=== PATIENT | male | born 1940 | race Hispanic/Latino ===

== ENCOUNTER 2017-12-12 18:12 | Inpatient (IN) | payer OTHER ==
[2017-12-12 19:04] LABS: Basophils % (Auto) 0.3 % (0.0-1.8); Hematocrit 44.4 % (35.5-45.6); Hemoglobin 15.1 gm/dl (11.8-15.2); Lymphocytes # (Auto) 0.5 K/mm3 (1.2-5.4); Lymphocytes % (Auto) 5.4 % (13.4-35.0); Mean Corpuscular HGB Conc 34 % (32-34); Mean Corpuscular Hemoglobin 31 pg (28-32); Mean Corpuscular Volume 92 fl (84-94); Monocytes % (Auto) 11.4 % (0.0-7.3); Platelet Count 182 K/mm3 (140-440); Red Blood Count 4.85 M/mm3 (3.65-5.03); Red Cell Distribution Width 15.2 % (13.2-15.2)
[2017-12-12 19:22] LABS: Alanine Aminotransferase 16 units/L (7-56); Albumin 3.8 g/dL (3.9-5); BUN/Creatinine Ratio 21; Blood Urea Nitrogen 17 mg/dL (9-20); Calcium 8.3 mg/dL (8.4-10.2); Hemolysis Index 33
[2017-12-12] MEDS ORDERED: ZOFRAN IV PRN ×2 (19:34→22:29)
[2017-12-12] MEDS ORDERED: SUBLIMAZE IV PRN (19:34)
--- NOTE | 2017-12-12 19:49 | Emergency Department Report ---
HPI - General Chief Complaint: Fall Time Seen by Provider: 12/12/17 19:21 - HPI HPI: Room 23 The patient is a 77-year-old male presenting with chief complaint of right lower extremity pain. The patient states she flew in from the [place] last night (10 hour flight). The patient states he went to his hotel while walking to the bathroom he believes his right lower extremity gave out and he fell to the ground. Patient denies ever losing consciousness. Patient denies ever having chest pain, shortness of breath or dizziness. The patient states she had people help him UP. However today when he realized he could not get up on its own came to the emergency department. The patient currently gives his pain a score of 2/10 while he is lying still Location: Right lower extremity Duration: [See above] Quality: Pain Severity:2/10 Modifying factors: [see above] Context: [see above] Mode of transportation: [not driving] ED Past Medical Hx - Past Medical History Additional medical history: hx of meneire disease , deaf right ear - Surgical History Past Surgical History?: No Additional Surgical History: Right hip replacement, right knee surgery - Family History Family history: no significant - Social History Smoking Status: Never Smoker Substance Use Type: Alcohol (occasional) ED Review of Systems ROS: Stated complaint: FEMUR FRACTURE Other details as noted in HPI Respiratory: denies: shortness of breath Cardiovascular: denies: chest pain Musculoskeletal: arthralgia, myalgia Neurological: denies: other (denies dizziness) Physical Exam - Physical Exam Vital Signs: Vital Signs 12/12/17 18:38 Temperature 98.7 F Pulse Rate 106 H Respiratory 16 Rate Blood Pressure 143/83 Blood Pressure 143/83 [Right] O2 Sat by Pulse 96 Oximetry Physical Exam: GENERAL: The patient is well-developed well-nourished male lying on stretcher not appearing to be in acute distress. [] HEENT: Normocephalic. Atraumatic. Extraocular motions are intact. Patient has moist mucous membranes. NECK: Supple. Trachea midline CHEST/LUNGS: Clear to auscultation. There is no respiratory distress noted. HEART/CARDIOVASCULAR: Regular. There is no tachycardia. There is no gallop rub or murmur. 2+ right DP ABDOMEN: Abdomen is soft, nontender. Patient has normal bowel sounds. There is no abdominal distention. SKIN: There is no rash. There is slight fullness of the right thigh but it is not taut. There is no diaphoresis. NEURO: The patient is awake, alert, and oriented. The patient is cooperative. The patient has no focal neurologic deficits. The patient has normal speech MUSCULOSKELETAL: There is fullness and tenderness of the right thigh. There is limited range of motion of the right leg secondary to pain ED Course Vital Signs 12/12/17 18:38 Temperature 98.7 F Pulse Rate 106 H Respiratory 16 Rate Blood Pressure 143/83 Blood Pressure 143/83 [Right] O2 Sat by Pulse 96 Oximetry - Consultations Consultation #1: 19:[address] Box 12/12/17 21:40 Orthopedic surgery paged for update 12/12/17 21:43 CT chest findings discussed with Dr. Box. States it is okay to initiate heparin therapy ED Medical Decision Making - Lab Data Result diagrams: 12/12/17 18:50 12/12/17 18:50 Laboratory Tests 12/12/17 12/12/17 12/12/17 18:50 18:50 19:54 WBC 8.5 RBC 4.85 Hgb 15.1 Hct 44.4 MCV 92 MCH 31 MCHC 34 RDW 15.2 Plt Count 182 Lymph % (Auto) 5.4 L [place] % (Auto) 11.4 H Eos % (Auto) 0.0 Baso % (Auto) 0.3 Lymph # 0.5 L [place] # 1.0 H Eos # 0.0 Baso # 0.0 Seg Neutrophils % 82.9 H Seg Neutrophils # 7.0 PT 13.3 INR 0.96 APTT 35.5 Sodium 136 L Potassium 3.7 Chloride 96.3 L Carbon Dioxide 23 Anion Gap 20 BUN 17 Creatinine 0.8 Estimated GFR > 60 BUN/Creatinine Ratio 21 Glucose 131 H Calcium 8.3 L Total Bilirubin 1.10 AST 29 ALT 16 Alkaline Phosphatase 68 Total Creatine Kinase CK-MB (CK-2) CK-MB (CK-2) Rel Index Troponin T Total Protein 6.6 Albumin 3.8 L Albumin/Globulin Ratio 1.4 Blood Type Antibody Screen 12/12/17 12/12/17 19:54 19:54 WBC RBC Hgb Hct MCV MCH MCHC RDW Plt Count Lymph % (Auto) [place] % (Auto) Eos % (Auto) Baso % (Auto) Lymph # [place] # Eos # Baso # Seg Neutrophils % Seg Neutrophils # PT INR APTT Sodium Potassium Chloride Carbon Dioxide Anion Gap BUN Creatinine Estimated GFR BUN/Creatinine Ratio Glucose Calcium Total Bilirubin AST ALT Alkaline Phosphatase Total Creatine Kinase 1011 H CK-MB (CK-2) 5.0 H CK-MB (CK-2) Rel Index 0.4 Troponin T < 0.010 Total Protein Albumin Albumin/Globulin Ratio Blood Type O NEGATIVE Antibody Screen Negative - EKG Data -: EKG Interpreted by Me EKG shows normal: sinus rhythm Rate: normal - EKG Data When compared to previous EKG there are: previous EKG unavailable Interpretation: other (no ischemic changes seen) - Radiology Data Radiology results: report reviewed (CT chest), image reviewed (pelvis x-ray, right femur x-ray, CT chest) interpreted by me: Pelvis x-ray-no acute fracture. Right hip hardware in place Right femur [id number] mid to distal femoral shaft fracture FINAL REPORT PROCEDURE: CT ANGIO CHEST TECHNIQUE: Computerized tomographic angiography of the chest was performed after the IV injection of iodinated nonionic contrast including image processing. The image data was postprocessed using 2-dimensional multiplanar reformatted (MPR) and 3-dimensional (MIP and/or volume rendered) techniques. HISTORY: fall after 10 hour flight COMPARISON: No prior studies are available for comparison. FINDINGS: Heart and pericardium: Normal. Thoracic aorta: There is no thoracic aortic aneurysm or dissection.. Pulmonary vasculature: There are emboli in the distal basilar branches on the right. There is no saddle embolus.. Lymph nodes: No enlarged thoracic lymph nodes. Lungs: Lungs are expanded. There are fibrotic changes at the lung bases. There are no acute infiltrates.. Pleural space: No effusion, thickening, or pneumothorax. Musculoskeletal structures: No significant abnormality. Upper abdominal structures: No significant abnormality. IMPRESSION: Right basilar pulmonary emboli. Dr. Gutierrez was notified by telephone at 8:30 p.m. central time. Transcribed By: CO Dictated By: GALLO GOULD MD Electronically Authenticated By: GALLO GOULD MD Signed Date/Time: 12/12/171736 DD/ 36 TD/TT: 12/12/171736 - Differential Diagnosis femur fracture, PE Critical care attestation.: If time is entered above; I have spent that time in minutes in the direct care of this critically ill patient, excluding procedure time. ED Disposition Clinical Impression: Right femoral shaft fracture, Pulmonary embolus Disposition: 09 OP ADMIT IP TO THIS HOSP Is pt being admited?: Yes Does the pt Need Aspirin: No Condition: Fair Referrals: PRIMARY CARE,MD [Primary Care Provider] - 3-5 Days Time of Disposition: 21:44 (hospitalist paged (Dr. July Poon))
--- NOTE | 2017-12-12 19:53 | XRay Report ---
FINAL REPORT PROCEDURE: Right femur. TECHNIQUE: AP and lateral views. HISTORY: Patient fell, leg pain. COMPARISON: No prior studies are available for comparison. FINDINGS: There is a right hip prosthesis in satisfactory position. There is a comminuted fracture involving the distal diaphysis of the femur. There is lateral displacement of the main distal fragment of approximately 10 millimeters. There is medial displacement of a 2nd fragment of approximately 16 millimeters. There is anterior angulation of the main distal fragment of approximately 20 degrees. There is a medial hemiarthroplasty present in the knee joint. The soft tissues are unremarkable. IMPRESSION: Comminuted fracture of the distal femur as described.
--- NOTE | 2017-12-12 19:55 | XRay Report ---
FINAL REPORT PROCEDURE: Pelvis. TECHNIQUE: AP pelvis, cross-table lateral proximal right femur. HISTORY: Patient fell, hip pain. COMPARISON: No prior studies are available for comparison. FINDINGS: The pelvis appears intact without fracture as far as visualized. There is a right hip prosthesis. There is a partially imaged comminuted fracture of the distal femur. IMPRESSION: No evidence of a pelvic fracture. Comminuted fracture of the right femur.
[2017-12-12 20:46] LABS: INR 0.96 (0.87-1.13)
[2017-12-12 20:47] LABS: Partial Thromboplastin Time 35.5 Sec. (24.2-36.6)
[2017-12-12] MEDS ORDERED: NACL 0.9% 1000 ML 1,000 ML IV ONE (21:24)
--- NOTE | 2017-12-12 21:41 | Cat Scan Report ---
FINAL REPORT PROCEDURE: CT ANGIO CHEST TECHNIQUE: Computerized tomographic angiography of the chest was performed after the IV injection of iodinated nonionic contrast including image processing. The image data was postprocessed using 2-dimensional multiplanar reformatted (MPR) and 3-dimensional (MIP and/or volume rendered) techniques. HISTORY: fall after 10 hour flight COMPARISON: No prior studies are available for comparison. FINDINGS: Heart and pericardium: Normal. Thoracic aorta: There is no thoracic aortic aneurysm or dissection.. Pulmonary vasculature: There are emboli in the distal basilar branches on the right. There is no saddle embolus.. Lymph nodes: No enlarged thoracic lymph nodes. Lungs: Lungs are expanded. There are fibrotic changes at the lung bases. There are no acute infiltrates.. Pleural space: No effusion, thickening, or pneumothorax. Musculoskeletal structures: No significant abnormality. Upper abdominal structures: No significant abnormality. IMPRESSION: Right basilar pulmonary emboli. Dr. Gutierrez was notified by telephone at 8:30 p.m. central time.
[2017-12-12] MEDS ORDERED: HEPARIN 10,000 UNITS/10 ML IV ONE (21:45)
[2017-12-12 22:23] LABS: INR 0.97 (0.87-1.13)
[2017-12-12 22:24] LABS: Partial Thromboplastin Time 35.1 Sec. (24.2-36.6)
[2017-12-12] MEDS ORDERED: DULCOLAX PR PRN (22:29)
[2017-12-12] MEDS ORDERED: MORPHINE IV PRN (22:29)
[2017-12-12] MEDS ORDERED: MILK OF MAGNESIA PO PRN (22:29)
[2017-12-12] MEDS ORDERED: TYLENOL PO PRN (22:29)
--- NOTE | 2017-12-12 22:31 | History and Physical Report ---
History of Present Illness Date of examination: 12/12/17 History of present illness: 77-year-old man with no medical problem, visiting from the [place], the hospital as well as he was at the hotel, he sustained a fall, there was no loss of consciousness, he stated he did not trip on anything or lost his balance. Patient had difficulty getting up Review Of Systems: Constitutional: no weight loss Ears, eyes, nose, mouth and throat: no nasal congestion, no nasal discharge, no sinus pressure, blurry vision, diplopia Neck: No neck pain or rigidity. Cardiovascular: No chest pain, palpitations Respiratory: No shortness of breath, cough Gastrointestinal: No abdominal pain, hematochezia Genitourinary : no dysuria, frequency , hematuria Musculoskeletal: no muscle ache Integumentary: no rash, no pruritis Neurological: no parathesias, focal weakness Endocrine: no cold or heat intolerance, no polyuria or polydipsia Hematologic/Lymphatic: no easy bruising, no easy bleeding, no gland swelling Allergic/Immunologic: no urticaria, no angioedema. PAST MEDICAL HISTORY:none PAST SURGICAL HISTORY: Hip, knee, hernia repair FAMILY HISTORY: Hypertension SOCIAL HISTORY: Denies alcohol, tobacco, drugs . Medications and Allergies Allergies Allergy/AdvReac Type Severity Reaction Status Date / Time No Known Allergies Allergy Unverified 12/12/17 18:44 Active Meds: Active Medications Fentanyl (Sublimaze) 100 mcg IV ONCE PRN PRN Reason: Pain Last Admin: 12/12/17 21:01 Dose: 100 mcg Sodium Chloride (Nacl 0.9% 1000 Ml) 1,000 mls @ 125 mls/hr IV ONCE ONE Stop: 12/13/17 05:23 Heparin Sodium/Sodium Chloride (Heparin/ 0.45% Nacl-25,000 Unit/500 Ml) 25,000 unit in 500 mls @ 24 mls/hr IV TITR SHIRA; 1,200 UNITS/HR PRN Reason: Protocol Ondansetron HCl (Zofran) 8 mg IV ONCE PRN PRN Reason: Nausea Last Admin: 12/12/17 21:01 Dose: 8 mg Exam - Physical Exam Narrative exam: Gen. appearance: Patient lying in bed in no acute distress HEENT: Normocephalic/atraumatic, pupils equal round reactive to light, extra occular movement intact, no scleral icterus, no JVD or thyromegaly or nodule, neck is supple, mucous membrane moist, no erythema or exudate Heart: S1-S2, regular rate and rhythm Lungs: Clear to auscultation bilateral breathing comfortable Abdomen: Positive bowel sounds, nontender, nondistended, no organomegaly Extremities: No edema, cyanosis, clubbing Neuro:: Oriented 3 , cranial nerves II-12 intact, speech, motor intact Skin: No rash, nodules, warm dry - Constitutional Vitals: Temp Pulse Resp BP Pulse Ox 98.7 F 106 H 16 143/83 98 12/12/17 18:38 12/12/17 18:38 12/12/17 18:38 12/12/17 18:38 12/12/17 18:38 Results - Labs CBC & Chem 7: 12/12/17 18:50 12/12/17 18:50 Labs: Abnormal lab results 12/12/17 12/12/17 12/12/17 Range/Units 18:50 18:50 19:54 Lymph % (Auto) 5.4 L (13.4-35.0) % [place] % (Auto) 11.4 H (0.0-7.3) % Lymph # 0.5 L (1.2-5.4) K/mm3 [place] # 1.0 H (0.0-0.8) K/mm3 Seg Neutrophils % 82.9 H (40.0-70.0) % Sodium 136 L (137-145) mmol/L Chloride 96.3 L (98-107) mmol/L Glucose 131 H (75-100) mg/dL Calcium 8.3 L (8.4-10.2) mg/dL Total Creatine Kinase 1011 H (55-170) units/L CK-MB (CK-2) 5.0 H (0.0-4.0) ng/mL Albumin 3.8 L (3.9-5) g/dL - Imaging and Cardiology EKG: image reviewed CT scan - chest: report reviewed Assessment and Plan X-ray of the hip, pelvis, femur reviewed Assessment Acute right-sided pulmonary emboli Right femur fracture Rhabdomyolysis Plan Admit to medicine Continue heparin drip, consult orthopedic Start IV fluids, monitor CK levels IV morphine, DVT prophylaxis
[2017-12-12] MEDS ORDERED: HEPARIN/ 0.45% NACL-25,000 UNIT/500 ML 25,000 UNIT/500 ML BAG ONE (23:15)
[2017-12-12] MEDS ORDERED: HEPARIN ONE (23:15)
[2017-12-12] MEDS: HEPARIN/ 0.45% NACL-25,000 UNIT/500 ML 25,000 UNIT/500 ML BAG IV SCH (23:15)
[2017-12-13] MEDS: NACL 0.45% 1000 ML 1,000 ML IV SCH ×2 (00:19→11:39)
[2017-12-13 07:39] LABS: Basophils % (Auto) 0.2 % (0.0-1.8); Hematocrit 40.8 % (35.5-45.6); Hemoglobin 14.1 gm/dl (11.8-15.2); Lymphocytes # (Auto) 0.8 K/mm3 (1.2-5.4); Lymphocytes % (Auto) 11.6 % (13.4-35.0); Mean Corpuscular HGB Conc 35 % (32-34); Mean Corpuscular Hemoglobin 31 pg (28-32); Mean Corpuscular Volume 90 fl (84-94); Monocytes # (Auto) 0.9 K/mm3 (0.0-0.8); Monocytes % (Auto) 13.1 % (0.0-7.3); Platelet Count 180 K/mm3 (140-440); Red Blood Count 4.54 M/mm3 (3.65-5.03); Red Cell Distribution Width 15.4 % (13.2-15.2)
[2017-12-13 07:41] LABS: BUN/Creatinine Ratio 24; Blood Urea Nitrogen 17 mg/dL (9-20); Calcium 7.9 mg/dL (8.4-10.2); Hemolysis Index 2
[2017-12-13 08:27] LABS: Creatine Kinase MB 2.2 ng/mL (0.0-4.0)
[2017-12-13] MEDS: MORPHINE IV PRN (11:42)
--- NOTE | 2017-12-13 14:43 | Consultation ---
History of Present Illness - HPI Consult date: 12/13/17 Consult reason: fracture History of present illness: 77 y/o male with c/o right thigh pain and swelling after fall on 12/11/17, states slipped while exiting bathroom at hotel. 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 Medications and Allergies Allergies Allergy/AdvReac Type Severity Reaction Status Date / Time No Known Allergies Allergy Unverified 12/12/17 18:44 Active Meds: Active Medications Acetaminophen (Tylenol) 650 mg PO Q4H PRN PRN Reason: Pain MILD(1-3)/Fever >100.5/DELGADO Bisacodyl (Dulcolax) 10 mg MI QDAY PRN PRN Reason: Constipation unrelieved by MOM Fentanyl (Sublimaze) 100 mcg IV ONCE PRN PRN Reason: Pain Last Admin: 12/12/17 21:01 Dose: 100 mcg Heparin Sodium/Sodium Chloride (Heparin/ 0.45% Nacl-25,000 Unit/500 Ml) 25,000 unit in 500 mls @ 24 mls/hr IV TITR SHIRA; 1,200 UNITS/HR PRN Reason: Protocol Last Admin: 12/12/17 23:15 Dose: 1,200 units/hr, 24 mls/hr Sodium Chloride (Nacl 0.45% 1000 Ml) 1,000 mls @ 75 mls/hr IV DIRECT SHIRA Last Admin: 12/13/17 11:39 Dose: 75 mls/hr Magnesium Hydroxide (Milk Of Magnesia) 30 ml PO Q4H PRN PRN Reason: Constipation Morphine Sulfate (Morphine) 2 mg IV Q4H PRN PRN Reason: Pain, Moderate (4-6) Last Admin: 12/13/17 11:42 Dose: 2 mg Ondansetron HCl (Zofran) 4 mg IV Q4H PRN PRN Reason: N/V unrelieved by Reglan Last Admin: 12/13/17 11:34 Dose: 4 mg Physical Examination - Physical exam Narrative exam: right LE - moderate swelling, + deformity, skin intact, decreased active ROM, distal n/v intact Assessment and Plan Periprosthetic fracture right femur will require open reduction internal fixation right femur once medical condition permits
--- NOTE | 2017-12-13 15:02 | Anesthesia Consultation ---
Anesthesia Consult and Med Hx Date of service: 12/13/17 - Airway Anesthetic Teeth Evaluation: Good ROM Head & Neck: Adequate Mental/Hyoid Distance: Adequate Mallampati Class: Class I Intubation Access Assessment: Good - Pulmonary Exam CTA: Yes - Cardiac Exam Cardiac Exam: RRR - Pre-Operative Health Status ASA Pre-Surgery Classification: ASA2 Proposed Anesthetic Plan: General - Other Systems Hx Cancer: No - Additional Comments Anesthesia Medical History Comments: patient is being anticoagulated for pulmonary embolism dx yesterday
--- NOTE | 2017-12-13 15:40 | Progress Note ---
Assessment and Plan /Acute right-sided pulmonary emboli Continue heparin drip, cont IV fluids, obtain 2d echo /Right femur fracture - consult orthopedic, plan for surgery tomorrow /Rhabdomyolysis - monitor CK levels /DVT Px on heparin Brief History: 77 y/o male with c/o right thigh pain and swelling after fall on 12/11/17, states slipped while exiting bathroom at hotel. 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 Physical Exam; Gen. appearance: Patient lying in bed in no acute distress HEENT: Normocephalic/atraumatic, pupils equal round reactive to light, extra occular movement intact, no scleral icterus, no JVD or thyromegaly or nodule, neck is supple, mucous membrane moist, no erythema or exudate Heart: S1-S2, regular rate and rhythm Lungs: Clear to auscultation bilateral breathing comfortable Abdomen: Positive bowel sounds, nontender, nondistended, no organomegaly Extremities: No edema, cyanosis, clubbing Neuro:: Oriented 3 , cranial nerves II-12 intact, speech, motor intact Skin: No rash, nodules, warm dry Musculoskeletal: restricted right LE movements Subjective Date of service: 12/13/17 Interval history: Pt seen and examined c/o RLE pain but controlled with current pain meds Objective - Constitutional Vitals: Vital Signs - 12hr 12/13/17 12/13/17 04:23 09:04 Temperature 100.1 F H 99.0 F Pulse Rate 93 H 90 Respiratory 20 18 Rate Blood Pressure 124/76 134/78 O2 Sat by Pulse 95 96 Oximetry - Labs CBC & Chem 7: 12/14/17 05:52 12/13/17 06:40 Labs: Abnormal lab results 12/12/17 12/12/17 12/12/17 Range/Units 18:50 18:50 19:54 MCHC (32-34) % RDW (13.2-15.2) % Lymph % (Auto) 5.4 L (13.4-35.0) % [place] % (Auto) 11.4 H (0.0-7.3) % Lymph # 0.5 L (1.2-5.4) K/mm3 [place] # 1.0 H (0.0-0.8) K/mm3 Seg Neutrophils % 82.9 H (40.0-70.0) % Sodium 136 L (137-145) mmol/L Chloride 96.3 L (98-107) mmol/L Creatinine (0.8-1.5) mg/dL Glucose 131 H (75-100) mg/dL Calcium 8.3 L (8.4-10.2) mg/dL Total Creatine Kinase 1011 H (55-170) units/L CK-MB (CK-2) 5.0 H (0.0-4.0) ng/mL Albumin 3.8 L (3.9-5) g/dL 12/13/17 12/13/17 12/13/17 Range/Units 06:40 06:40 06:40 MCHC 35 H (32-34) % RDW 15.4 H (13.2-15.2) % Lymph % (Auto) 11.6 L (13.4-35.0) % [place] % (Auto) 13.1 H (0.0-7.3) % Lymph # 0.8 L (1.2-5.4) K/mm3 [place] # 0.9 H (0.0-0.8) K/mm3 Seg Neutrophils % 75.1 H (40.0-70.0) % Sodium (137-145) mmol/L Chloride (98-107) mmol/L Creatinine 0.7 L (0.8-1.5) mg/dL Glucose 107 H (75-100) mg/dL Calcium 7.9 L (8.4-10.2) mg/dL Total Creatine Kinase 743 H (55-170) units/L CK-MB (CK-2) (0.0-4.0) ng/mL Albumin (3.9-5) g/dL
[2017-12-13] MEDS: HEPARIN/ 0.45% NACL-25,000 UNIT/500 ML 25,000 UNIT/500 ML BAG IV SCH (23:57)
[2017-12-14] MEDS: MORPHINE IV PRN (02:52)
[2017-12-14] MEDS: NACL 0.45% 1000 ML 1,000 ML IV SCH ×2 (04:30→18:11)
[2017-12-14 06:53] LABS: Hematocrit 33.8 % (35.5-45.6); Hemoglobin 11.8 gm/dl (11.8-15.2)
--- NOTE | 2017-12-14 15:54 | Progress Note ---
Assessment and Plan /Acute right-sided pulmonary emboli Continue heparin drip, cont IV fluids, follow 2d echo results /Right femur fracture - consult orthopedic, plan for surgery rescheduled tomorrow /Rhabdomyolysis - monitor CK levels /DVT Px on heparin Brief History: 77 y/o male with c/o right thigh pain and swelling after fall on 12/11/17, states slipped while exiting bathroom at hotel. 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 Physical Exam; Gen. appearance: Patient lying in bed in no acute distress HEENT: Normocephalic/atraumatic, pupils equal round reactive to light, extra occular movement intact, no scleral icterus, no JVD or thyromegaly or nodule, neck is supple, mucous membrane moist, no erythema or exudate Heart: S1-S2, regular rate and rhythm Lungs: Clear to auscultation bilateral breathing comfortable Abdomen: Positive bowel sounds, nontender, nondistended, no organomegaly Extremities: No edema, cyanosis, clubbing Neuro:: Oriented 3 , cranial nerves II-12 intact, speech, motor intact Skin: No rash, nodules, warm dry Musculoskeletal: restricted right LE movements Subjective Date of service: 12/14/17 Interval history: Pt seen and examined c/o RLE pain but controlled with current pain meds Objective - Constitutional Vitals: Vital Signs - 12hr 12/14/17 12/14/17 12/14/17 05:38 10:00 10:29 Temperature 98.2 F Pulse Rate 88 83 89 Respiratory 18 Rate Blood Pressure 106/55 Blood Pressure 133/69 [Right] O2 Sat by Pulse 93 Oximetry 12/14/17 10:31 Temperature 98.7 F Pulse Rate Respiratory 20 Rate Blood Pressure Blood Pressure [Right] O2 Sat by Pulse Oximetry - Labs CBC & Chem 7: 12/15/17 06:47 12/15/17 06:47 Labs: Abnormal lab results 12/14/17 Range/Units 05:52 Hct 33.8 L D (35.5-45.6) %
[2017-12-14] MEDS: HEPARIN/ 0.45% NACL-25,000 UNIT/500 ML 25,000 UNIT/500 ML BAG IV SCH (23:01)
[2017-12-15] MEDS: MORPHINE IV PRN ×2 (05:55→18:42)
[2017-12-15 07:30] LABS: Basophils % (Auto) 0.2 % (0.0-1.8); Hematocrit 31.8 % (35.5-45.6); Hemoglobin 11.2 gm/dl (11.8-15.2); Lymphocytes # (Auto) 0.3 K/mm3 (1.2-5.4); Lymphocytes % (Auto) 7.1 % (13.4-35.0); Mean Corpuscular HGB Conc 35 % (32-34); Mean Corpuscular Hemoglobin 31 pg (28-32); Mean Corpuscular Volume 89 fl (84-94); Monocytes # (Auto) 0.5 K/mm3 (0.0-0.8); Monocytes % (Auto) 11.9 % (0.0-7.3); Platelet Count 193 K/mm3 (140-440); Red Blood Count 3.57 M/mm3 (3.65-5.03); Red Cell Distribution Width 14.4 % (13.2-15.2)
[2017-12-15 07:55] LABS: Alanine Aminotransferase 17 units/L (7-56); Albumin 3.1 g/dL (3.9-5); BUN/Creatinine Ratio 20; Blood Urea Nitrogen 14 mg/dL (9-20); Calcium 7.1 mg/dL (8.4-10.2); Hemolysis Index 5
--- NOTE | 2017-12-15 10:30 | Anesthesia Consultation ---
Anesthesia Consult and Med Hx Date of service: 12/15/17 - Airway Anesthetic Teeth Evaluation: Poor, Chipped ROM Head & Neck: Adequate Mental/Hyoid Distance: Adequate Mallampati Class: Class III Intubation Access Assessment: Possibly Difficult - Pulmonary Exam CTA: Yes - Pre-Operative Health Status ASA Pre-Surgery Classification: ASA3 Proposed Anesthetic Plan: General - Pre-Anesthesia Comment Pre-Anesthesia Comments: on heparin drip due to PE dx - Other Systems Hx Cancer: No - Additional Comments Anesthesia Medical History Comments: patient is being anticoagulated for pulmonary embolism dx yesterday
--- NOTE | 2017-12-15 10:31 | Anesthesia Day of Surgery ---
Anesthesia Day of Surgery - Day of Surgery Patient Examined: Yes Patient H&P Reviewed: Yes Patient is NPO: Yes
[2017-12-15] MEDS: LACTATED RINGERS 1,000 ML IV SCH (11:00)
--- NOTE | 2017-12-15 11:05 | Event Note ---
Date: 12/15/17 Spoke with anesthesiologist about heparin drip. will not hold the drip since h/ o acute PE. will discuss with pulmonary for medical clearance for respiratory stand point.
--- NOTE | 2017-12-15 13:13 | Event Note ---
Date: 12/15/17 Spoke with IMS today. Official consult to follow. We discussed the history, recent travel current clinical situation. The patient is currently on heparin drip for acute pulmonary embolism, and no evidence of DVT. Per IMS, patient not short of breath prior to fall, despite traveling from [place]. Most likely fat embolism based on history. This is treated with supportive care. Diagnostically this is a clinical diagnosis consisting of at least one major and 4 minor criteria should be present. I have not had a chance to evaluate this patient. Biggest risk with anticoagulation is bleeding and one would thing this would be highest with the fracture. It appears to benefits outweigh the risk and suggest holding heparin to do procedure and asking how soon anticoagulation could be restarted. patient would need anticoagulation post-op , I assume, anyway given decreased mobility and DVT prevention. If all criteria not met for fat emboli, anticoagulation would be need for presumptive blood clot in pulmonary artery. Will evaluate and perform full consult.
--- NOTE | 2017-12-15 16:11 | Progress Note ---
Assessment and Plan /Acute right-sided pulmonary emboli likely fat embolism due to femur fracture Continue heparin drip, cont IV fluids, preserved EF on 2d echo consulted pulmonary /Right femur fracture - consult orthopedic, plan for surgery rescheduled tomorrow - hold heparin drip 4h before surgery /Rhabdomyolysis - monitor CK levels /DVT Px on heparin Brief History: 77 y/o male with c/o right thigh pain and swelling after fall on 12/11/17, states slipped while exiting bathroom at hotel. 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 Physical Exam; Gen. appearance: Patient lying in bed in no acute distress HEENT: Normocephalic/atraumatic, pupils equal round reactive to light, extra occular movement intact, no scleral icterus, no JVD or thyromegaly or nodule, neck is supple, mucous membrane moist, no erythema or exudate Heart: S1-S2, regular rate and rhythm Lungs: Clear to auscultation bilateral breathing comfortable Abdomen: Positive bowel sounds, nontender, nondistended, no organomegaly Extremities: No edema, cyanosis, clubbing Neuro:: Oriented 3 , cranial nerves II-12 intact, speech, motor intact Skin: No rash, nodules, warm dry Musculoskeletal: restricted right LE movements Subjective Date of service: 12/15/17 Interval history: Pt seen and examined c/o RLE pain but controlled with current pain meds Plan for surgery tomorrow Objective - Constitutional Vitals: Vital Signs - 12hr 12/15/17 12/15/17 12/15/17 05:40 08:33 10:00 Temperature 98.2 F Pulse Rate 76 86 76 Pulse Rate [ 76 Left Radial] Respiratory 18 18 Rate Blood Pressure Blood Pressure 131/68 [Right] O2 Sat by Pulse 96 94 96 Oximetry 12/15/17 12/15/17 11:27 11:28 Temperature 99.9 F H Pulse Rate 86 86 Pulse Rate [ Left Radial] Respiratory 18 Rate Blood Pressure 102/60 102/60 Blood Pressure [Right] O2 Sat by Pulse 93 93 Oximetry - Labs CBC & Chem 7: 12/15/17 06:47 12/15/17 06:47 Labs: Abnormal lab results 12/15/17 12/15/17 12/15/17 Range/Units 06:42 06:47 06:47 WBC 4.2 L (4.5-11.0) K/mm3 RBC 3.57 L (3.65-5.03) M/mm3 Hgb 11.2 L (11.8-15.2) gm/dl Hct 31.8 L (35.5-45.6) % MCHC 35 H (32-34) % Lymph % (Auto) 7.1 L (13.4-35.0) % [place] % (Auto) 11.9 H (0.0-7.3) % Lymph # 0.3 L (1.2-5.4) K/mm3 Seg Neutrophils % 80.8 H (40.0-70.0) % Heparin Anti-Xa Level 0.23 L (0.3-0.7) U.I./ml Chloride 95.9 L (98-107) mmol/L Creatinine 0.7 L (0.8-1.5) mg/dL Glucose 108 H (75-100) mg/dL Calcium 7.1 L (8.4-10.2) mg/dL Total Protein 5.0 L D (6.3-8.2) g/dL Albumin 3.1 L (3.9-5) g/dL
[2017-12-16] MEDS: LACTATED RINGERS 1,000 ML IV SCH (00:37)
[2017-12-16 04:05] LABS: Hematocrit 28.5 % (35.5-45.6)
[2017-12-16] MEDS ORDERED: PEPCID PO NR (09:00)
[2017-12-16] MEDS ORDERED: NACL 0.9% 1000 ML 1,000 ML IV SCH (09:00)
[2017-12-16] MEDS: MORPHINE IV PRN (09:15)
[2017-12-16] MEDS ORDERED: DECADRON ONE (12:12)
[2017-12-16] MEDS ORDERED: MARCAINE 0.5% 30 ML INFILTRATI ONE (12:13)
[2017-12-16] MEDS ORDERED: SUBLIMAZE IV ONE ×2 (12:19→13:00)
[2017-12-16] MEDS ORDERED: SUBLIMAZE IV PRN ×2 (12:19→12:45)
--- NOTE | 2017-12-16 12:19 | Anesthesia Day of Surgery ---
Anesthesia Day of Surgery - Day of Surgery Patient Examined: Yes Patient H&P Reviewed: Yes Patient is NPO: Yes
[2017-12-16] MEDS ORDERED: XYLOCAINE MPF 2% ONE (12:57)
[2017-12-16] MEDS ORDERED: DILAUDID ONE (12:57)
[2017-12-16] MEDS ORDERED: DIPRIVAN 10 MG/ML IV ONE (12:57)
[2017-12-16] MEDS ORDERED: VERSED IV NR (13:00)
[2017-12-16] MEDS ORDERED: ANCEF/STERILE WATER 2 GM/20 ML IV NR (13:00)
[2017-12-16] MEDS ORDERED: NACL 0.9% 100 ML ONE ×2 (14:14→15:45)
[2017-12-16] MEDS ORDERED: TRANEXAMIC ACID ONE (14:14)
[2017-12-16] MEDS ORDERED: NEO SYNEPHRINE/NS Syringe(OR USE) IV ONE ×2 (15:43→16:05)
[2017-12-16] MEDS ORDERED: MARCAINE 0.5% INFILTRATI ONE ×2 (15:44→16:30)
[2017-12-16] MEDS ORDERED: TORADOL ONE (15:44)
[2017-12-16] MEDS ORDERED: NACL 0.9% 50 ML ONE (15:45)
[2017-12-16] MEDS ORDERED: MORPHINE ONE (15:45)
[2017-12-16] MEDS ORDERED: NACL 0.9% 1000 ML 1,000 ML ONE (16:06)
[2017-12-16] MEDS ORDERED: TORADOL IV ONE (16:30)
[2017-12-16] MEDS ORDERED: NACL 0.9% IV ONE ×2 (16:30)
[2017-12-16] MEDS ORDERED: NACL 0.9% IR ONE (16:30)
[2017-12-16] MEDS ORDERED: MORPHINE IM ONE (16:30)
--- NOTE | 2017-12-16 17:00 | Post Anesthesia Evaluation ---
- Post Anesthesia Evaluation Patient Participated: Yes Airway Patent: Yes Stable Respiratory Function: Yes Nausea/Vomiting: No Temp > 96.8F: Yes Pain Manageable: Yes Adequeate Hydration: Yes Anesthesia Complications: No Patient on Ventilator: No
--- NOTE | 2017-12-16 17:37 | Procedure Note ---
Date of procedure: 12/16/17 Pre-op diagnosis: Displaced right femur fracture Post-op diagnosis: same Procedure: Open reduction internal fixation right femur Procedure Brought to the OR and placed on the OR table supine, next given general anesthesia with intubation. The right hip and thigh were prepped and draped in usual sterile fashion, a time out procedure done to identify the patient and correct operative site. A lateral incision made beginning at lateral condyle and extending upwards toward the greater trochanter this was then taken down to the fasica, next the fascia incised longitudinally, the vastus lateralis elevated anteriorly to exposed the fracture site. The fracture fragments were manipulated in more reduced position beginning at the distal femur with interfragmental compression with 4.5 cortical screw, next a long right locked plate applied distally followed traction and temporary fixation of proximal fragment, this followed by placement of locking and nonlocking screws in both proximal and distal fragments. 3 cables applied for added stability. AP and lateral images taken during the procedure show good reduction and placement of our hardware. The wound copiously irrigated and closed in standard routine fashion, post op dressing applied and there were no complications noted. He was taken to PACU in stable condition Anesthesia: ANAT Surgeon: CHANDRIKA VILCHIS [employer] Trader: TEDDY PUGA Estimated blood loss: other (500cc) Pathology: none Condition: stable Disposition: PACU
[2017-12-16] MEDS ORDERED: SODIUM CHLORIDE FLUSH SYRINGE 10 ML IV NR (18:00)
[2017-12-16 20:02] LABS: Hematocrit 25.3 % (35.5-45.6); Hemoglobin 8.3 gm/dl (11.8-15.2)
--- NOTE | 2017-12-16 21:21 | Progress Note ---
Assessment and Plan Assessment and plan: 77 y/o male with c/o right thigh pain and swelling after fall on 12/11/17, states slipped while exiting bathroom at hotel. 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 /Acute right-sided pulmonary emboli likely fat embolism due to femur fracture Continue heparin drip, cont IV fluids, preserved EF on 2d echo consulted pulmonary /Right femur fracture - consult orthopedic, plan for surgery rescheduled today - hold heparin drip 4h before surgery /Rhabdomyolysis, resolved - monitor CK levels /DVT Px on heparin History Interval history: Pt seen and examined, follow up Right leg pains, going for surgery today. Hospitalist Physical - Physical exam Narrative exam: Gen. appearance: Patient lying in bed in no acute distress HEENT: Normocephalic/atraumatic, pupils equal round reactive to light, extra occular movement intact, no scleral icterus, no JVD or thyromegaly or nodule, neck is supple, mucous membrane moist, no erythema or exudate Heart: S1-S2, regular rate and rhythm Lungs: Clear to auscultation bilateral breathing comfortable Abdomen: Positive bowel sounds, nontender, nondistended, no organomegaly Extremities: No edema, cyanosis, clubbing Neuro:: Oriented 3 , cranial nerves II-12 intact, speech, motor intact Skin: No rash, nodules, warm dry Musculoskeletal: restricted right LE movements - Constitutional Vitals: Temp Pulse Resp BP Pulse Ox 97 F L 78 12 116/53 100 12/16/17 18:45 12/16/17 18:45 12/16/17 18:45 12/16/17 18:45 12/16/17 18:45 Results - Labs CBC & Chem 7: 12/16/17 19:33 12/15/17 06:47 Labs: Laboratory Last Values WBC 4.2 K/mm3 (4.5-11.0) L 12/15/17 06:47 RBC 3.57 M/mm3 (3.65-5.03) L 12/15/17 06:47 Hgb 8.3 gm/dl (11.8-15.2) L 12/16/17 19:33 Hct 25.3 % (35.5-45.6) L 12/16/17 19:33 MCV 89 fl (84-94) 12/15/17 06:47 MCH 31 pg (28-32) 12/15/17 06:47 MCHC 35 % (32-34) H 12/15/17 06:47 RDW 14.4 % (13.2-15.2) 12/15/17 06:47 Plt Count 189 K/mm3 (140-440) 12/16/17 03:42 Lymph % (Auto) 7.1 % (13.4-35.0) L 12/15/17 06:47 [place] % (Auto) 11.9 % (0.0-7.3) H 12/15/17 06:47 Eos % (Auto) 0.0 % (0.0-4.3) 12/15/17 06:47 Baso % (Auto) 0.2 % (0.0-1.8) 12/15/17 06:47 Lymph # 0.3 K/mm3 (1.2-5.4) L 12/15/17 06:47 [place] # 0.5 K/mm3 (0.0-0.8) 12/15/17 06:47 Eos # 0.0 K/mm3 (0.0-0.4) 12/15/17 06:47 Baso # 0.0 K/mm3 (0.0-0.1) 12/15/17 06:47 Seg Neutrophils % 80.8 % (40.0-70.0) H 12/15/17 06:47 Seg Neutrophils # 3.4 K/mm3 (1.8-7.7) 12/15/17 06:47 PT 13.4 Sec. (12.2-14.9) 12/12/17 21:52 INR 0.97 (0.87-1.13) 12/12/17 21:52 APTT 35.1 Sec. (24.2-36.6) 12/12/17 21:52 Heparin Anti-Xa Level 0.69 U.I./ml (0.3-0.7) 12/15/17 20:48 Sodium 137 mmol/L (137-145) 12/15/17 06:47 Potassium 3.7 mmol/L (3.6-5.0) 12/15/17 06:47 Chloride 95.9 mmol/L (98-107) L 12/15/17 06:47 Carbon Dioxide 26 mmol/L (22-30) 12/15/17 06:47 Anion Gap 19 mmol/L 12/15/17 06:47 BUN 14 mg/dL (9-20) 12/15/17 06:47 Creatinine 0.7 mg/dL (0.8-1.5) L 12/15/17 06:47 Estimated GFR > 60 ml/min 12/15/17 06:47 BUN/Creatinine Ratio 20 % 12/15/17 06:47 Glucose 108 mg/dL (75-100) H 12/15/17 06:47 Calcium 7.1 mg/dL (8.4-10.2) L 12/15/17 06:47 Total Bilirubin 0.80 mg/dL (0.1-1.2) 12/15/17 06:47 AST 24 units/L (5-40) 12/15/17 06:47 ALT 17 units/L (7-56) 12/15/17 06:47 Alkaline Phosphatase 51 units/L (35-129) 12/15/17 06:47 Total Creatine Kinase 177 units/L (55-170) H 12/16/17 03:42 CK-MB (CK-2) 2.2 ng/mL (0.0-4.0) 12/13/17 06:40 CK-MB (CK-2) Rel Index 0.2 (0-4) 12/13/17 06:40 Troponin T < 0.010 ng/mL (0.00-0.029) 12/12/17 19:54 Total Protein 5.0 g/dL (6.3-8.2) L D 12/15/17 06:47 Albumin 3.1 g/dL (3.9-5) L 12/15/17 06:47 Albumin/Globulin Ratio 1.6 % 12/15/17 06:47 Blood Type O NEGATIVE 12/16/17 12:10 Antibody Screen Negative 12/16/17 12:10
--- NOTE | 2017-12-16 23:16 | XRay Report ---
FINAL REPORT PROCEDURE: XR FEMUR 2+V RT TECHNIQUE: LEFT femur radiographs, AP and lateral views. HISTORY: RT FEMUR FX/ORIF RT FEMUR COMPARISON: No prior studies are available for comparison. FINDINGS: There is hardware transfixing a fracture of the distal femur. The hardware is intact. The fracture fragments are in good alignment. There is hip replacement hardware which is intact. Soft tissues are unremarkable per IMPRESSION: Hardware is intact. Fracture fragments are in good alignment and close approximation.
[2017-12-17] MEDS: MORPHINE IV PRN ×3 (07:47→20:21)
--- NOTE | 2017-12-17 09:43 | Vascular Lab Report ---
LOWER EXTREMITY VENOUS DUPLEX: REASON FOR EXAM: Deep venous thrombosis. COMMENTS ON THE RIGHT: All veins visualized are freely compressible without evidence of internal echogenicity. Flow is spontaneous and phasic throughout. COMMENTS ON THE LEFT: All veins visualized are freely compressible without evidence of internal echogenicity. Flow is spontaneous and phasic throughout. IMPRESSION: No evidence of acute or chronic deep venous thrombosis in either lower extremity.
--- NOTE | 2017-12-17 11:45 | Consultation ---
History of Present Illness Consult date: 12/17/17 Requesting physician: SUZIE CLEMENTS Reason for consult: other (Anticoagulation being held) History of present illness: 77 y/o male, from the [place], here visiting for a holiday who has now suffered a fall and fractured his hip. He started having shortness of breath after this event and CTA done in ED revealed PE in the right basilar region. Patient was started on heparin drip. LE dopplers were negative for DVT. Patient did fly here from [place] but had no complaints of leg swelling or pain prior to fall. No shortness of breath prior to fall. He has never had a blood clot before. No history of prior or current malignancy. No history of lung disease. Past History Past Medical History: other (elevated PSA) Past Surgical History: No surgical history Social history: no significant social history Medications and Allergies Allergies Allergy/AdvReac Type Severity Reaction Status Date / Time latex AdvReac Itching Verified 12/16/17 12:54 Active Meds: Active Medications Acetaminophen (Tylenol) 650 mg PO Q4H PRN PRN Reason: Pain MILD(1-3)/Fever >100.5/DELGADO Bisacodyl (Dulcolax) 10 mg PA QDAY PRN PRN Reason: Constipation unrelieved by MOM Magnesium Hydroxide (Milk Of Magnesia) 30 ml PO Q4H PRN PRN Reason: Constipation Morphine Sulfate (Morphine) 2 mg IV Q4H PRN PRN Reason: Pain, Moderate (4-6) Last Admin: 12/17/17 07:47 Dose: 2 mg Ondansetron HCl (Zofran) 4 mg IV Q4H PRN PRN Reason: N/V unrelieved by Reglan Last Admin: 12/13/17 11:34 Dose: 4 mg Sodium Chloride (Sodium Chloride Flush Syringe 10 Ml) 10 ml IV PRN NR Stop: 12/17/17 17:59 Review of Systems All systems: negative Physical Examination Vital signs: Vital Signs Pulse Resp Pulse Ox 106 H 19 97 12/12/17 18:27 12/12/17 18:27 12/12/17 18:27 General appearance: no acute distress, alert Eyes: non-icteric ENT: oropharynx moist, oropharynx erythematous Neck: no lymphadenopathy Effort: normal Ascultation: Bilateral: clear Percussion: Right: not dull Tactile fremitus: Bilateral: normal Cardiovascular: regular rate and rhythm Gastrointestinal: normoactive bowel sounds, soft Results - Laboratory Findings CBC and BMP: 12/16/17 19:33 12/15/17 06:47 PT/INR, D-dimer PT 13.4 Sec. (12.2-14.9) 12/12/17 21:52 INR 0.97 (0.87-1.13) 12/12/17 21:52 Abnormal lab findings: Abnormal Labs 12/12/17 12/12/17 12/12/17 18:50 18:50 19:54 WBC RBC Hgb Hct MCHC RDW Lymph % (Auto) 5.4 L [place] % (Auto) 11.4 H Lymph # 0.5 L [place] # 1.0 H Seg Neutrophils % 82.9 H Heparin Anti-Xa Level Sodium 136 L Chloride 96.3 L Creatinine Glucose 131 H Calcium 8.3 L Total Creatine Kinase 1011 H CK-MB (CK-2) 5.0 H Total Protein Albumin 3.8 L 12/13/17 12/13/17 12/13/17 06:40 06:40 06:40 WBC RBC Hgb Hct MCHC 35 H RDW 15.4 H Lymph % (Auto) 11.6 L [place] % (Auto) 13.1 H Lymph # 0.8 L [place] # 0.9 H Seg Neutrophils % 75.1 H Heparin Anti-Xa Level Sodium Chloride Creatinine 0.7 L Glucose 107 H Calcium 7.9 L Total Creatine Kinase 743 H CK-MB (CK-2) Total Protein Albumin 12/14/17 12/15/17 12/15/17 05:52 06:42 06:47 WBC 4.2 L RBC 3.57 L Hgb 11.2 L Hct 33.8 L D 31.8 L MCHC 35 H RDW Lymph % (Auto) 7.1 L [place] % (Auto) 11.9 H Lymph # 0.3 L [place] # Seg Neutrophils % 80.8 H Heparin Anti-Xa Level 0.23 L Sodium Chloride Creatinine Glucose Calcium Total Creatine Kinase CK-MB (CK-2) Total Protein Albumin 12/15/17 12/16/17 12/16/17 06:47 03:42 03:42 WBC RBC Hgb 10.0 L Hct 28.5 L MCHC RDW Lymph % (Auto) [place] % (Auto) Lymph # [place] # Seg Neutrophils % Heparin Anti-Xa Level Sodium Chloride 95.9 L Creatinine 0.7 L Glucose 108 H Calcium 7.1 L Total Creatine Kinase 177 H CK-MB (CK-2) Total Protein 5.0 L D Albumin 3.1 L 12/16/17 19:33 WBC RBC Hgb 8.3 L Hct 25.3 L MCHC RDW Lymph % (Auto) [place] % (Auto) Lymph # [place] # Seg Neutrophils % Heparin Anti-Xa Level Sodium Chloride Creatinine Glucose Calcium Total Creatine Kinase CK-MB (CK-2) Total Protein Albumin - Diagnostic Findings CT scan - chest: image reviewed Assessment and Plan 77 y/o male with PE and hip fracture. 1. Question from Dr. Clements for me was the heparin could be stopped for the procedure. Given history and risk benefit ratio, it appears that the benefits outweigh the risk and that surgery is needed. I spoke with IMS that day. Surgery was done yesterday and patient tolerated well. Questions, now would be how long does anticoagulation take place. He will need some form of DVT prophylaxis given recent surgery on hip and limited mobility. He did not have the criteria for fat embolus but he also did not have LE DVT. Difficult case in regards to best option. In my professional opinion, I feel the best interest for this patient would be to have the usual anticoagulation recommended post-op from this type of surgery. Complete his rehab/PT and then travel back to [place]. He could have a hypercoag workup completed there. Patient is currently contacting his [place] physician to discuss with him as well but this is what I would current recommend. Please call if questions or concerns.
--- NOTE | 2017-12-17 13:46 | Progress Note ---
Assessment and Plan Assessment and plan: Patient is a 77 yo man from the [place] (he used a wheelchair at the airport) with c/ o right thigh pain and swelling after fall on 12/11/17 in his Hotel room, he stated that he slipped while exiting bathroom at hotel. He was able to go to sleep but upon waking he was unable to place any weight onto right leg, so the came to [facility] ED where xrays revealed a comminuted fracture mid to distal third femur .Admission CT scan chest revealed pulmonary emboli... He has no insurance funding for inpatient acute or subacute rehab. I spoke with neil Gabriel to d/ c with Eliquis for dvt prophylaxis, but he doesn't think patient needs director long term care anticoagulation for PE which can be determined by his doctors in the [place]. I also called Dr. Box. /Acute right-sided pulmonary emboli s/p long distance travel unlikely fat embolism per Dr. Mejia /Right femur fracture after mechanical fall s/p ORIF on 12/16/[address] Jack Box /Rhabdomyolysis, traumatic, resolved - monitor CK levels /DVT Px start Eliquis Disposition: d/c with Eliquis History Interval history: Pt seen and examined, follow up Right leg pains, s/p surgery. He denies any compliants. He never looked me in the face during this exam, he continued to work on his Laptop and look at his Calculator watch. He is suppose to go back to [place] tomorrow. He has no insurance funding for inpatient acute or subacute rehab. I spoke with neil Gabriel to d/c with Eliquis for dvt prophylaxis, but he doesn't think patient needs director long term care anticoagulation for PE which can be determined by his doctors in the [place]. I also called Dr. Box. Hospitalist Physical - Physical exam Narrative exam: GEN: WDWN, NAD, AWAKE, ALERT, ORIENTATED 3 HEENT: NCAT, EOMI, PERRL, OP Clear NECK: supple, no adenopathy, no thyromegaly, no JVD CVS/HEART: RRR, NORMAL S1S2, pulses present bilaterally CHEST/LUNGS: CTA B, Symmetrical chest expansion, good air entry bilaterally GI/Abdomen: soft, NTND, good bowel sounds, no guarding or rebound /Bladder: no suprapubic tenderness, no CVA or paraspinal tenderness EXT/Skin: no c/c/e, no obvious rash MSK: Limited range of motion of right hip but good distal pulses. Neuro: CN 2-12 grossly intact, no new focal deficits Psych: calm and withdrawn - Constitutional Vitals: Temp Pulse Resp BP Pulse Ox 98.4 F 78 18 107/52 93 12/17/17 02:39 12/17/17 02:39 12/17/17 02:39 12/17/17 02:39 12/17/17 00:03 Results - Labs CBC & Chem 7: 12/16/17 19:33 12/15/17 06:47 Labs: Laboratory Last Values WBC 4.2 K/mm3 (4.5-11.0) L 12/15/17 06:47 RBC 3.57 M/mm3 (3.65-5.03) L 12/15/17 06:47 Hgb 8.3 gm/dl (11.8-15.2) L 12/16/17 19:33 Hct 25.3 % (35.5-45.6) L 12/16/17 19:33 MCV 89 fl (84-94) 12/15/17 06:47 MCH 31 pg (28-32) 12/15/17 06:47 MCHC 35 % (32-34) H 12/15/17 06:47 RDW 14.4 % (13.2-15.2) 12/15/17 06:47 Plt Count 189 K/mm3 (140-440) 12/16/17 03:42 Lymph % (Auto) 7.1 % (13.4-35.0) L 12/15/17 06:47 [place] % (Auto) 11.9 % (0.0-7.3) H 12/15/17 06:47 Eos % (Auto) 0.0 % (0.0-4.3) 12/15/17 06:47 Baso % (Auto) 0.2 % (0.0-1.8) 12/15/17 06:47 Lymph # 0.3 K/mm3 (1.2-5.4) L 12/15/17 06:47 [place] # 0.5 K/mm3 (0.0-0.8) 12/15/17 06:47 Eos # 0.0 K/mm3 (0.0-0.4) 12/15/17 06:47 Baso # 0.0 K/mm3 (0.0-0.1) 12/15/17 06:47 Seg Neutrophils % 80.8 % (40.0-70.0) H 12/15/17 06:47 Seg Neutrophils # 3.4 K/mm3 (1.8-7.7) 12/15/17 06:47 PT 13.4 Sec. (12.2-14.9) 12/12/17 21:52 INR 0.97 (0.87-1.13) 12/12/17 21:52 APTT 35.1 Sec. (24.2-36.6) 12/12/17 21:52 Heparin Anti-Xa Level 0.69 U.I./ml (0.3-0.7) 12/15/17 20:48 Sodium 137 mmol/L (137-145) 12/15/17 06:47 Potassium 3.7 mmol/L (3.6-5.0) 12/15/17 06:47 Chloride 95.9 mmol/L (98-107) L 12/15/17 06:47 Carbon Dioxide 26 mmol/L (22-30) 12/15/17 06:47 Anion Gap 19 mmol/L 12/15/17 06:47 BUN 14 mg/dL (9-20) 12/15/17 06:47 Creatinine 0.7 mg/dL (0.8-1.5) L 12/15/17 06:47 Estimated GFR > 60 ml/min 12/15/17 06:47 BUN/Creatinine Ratio 20 % 12/15/17 06:47 Glucose 108 mg/dL (75-100) H 12/15/17 06:47 Calcium 7.1 mg/dL (8.4-10.2) L 12/15/17 06:47 Total Bilirubin 0.80 mg/dL (0.1-1.2) 12/15/17 06:47 AST 24 units/L (5-40) 12/15/17 06:47 ALT 17 units/L (7-56) 12/15/17 06:47 Alkaline Phosphatase 51 units/L (35-129) 12/15/17 06:47 Total Creatine Kinase 177 units/L (55-170) H 12/16/17 03:42 CK-MB (CK-2) 2.2 ng/mL (0.0-4.0) 12/13/17 06:40 CK-MB (CK-2) Rel Index 0.2 (0-4) 12/13/17 06:40 Troponin T < 0.010 ng/mL (0.00-0.029) 12/12/17 19:54 Total Protein 5.0 g/dL (6.3-8.2) L D 12/15/17 06:47 Albumin 3.1 g/dL (3.9-5) L 12/15/17 06:47 Albumin/Globulin Ratio 1.6 % 12/15/17 06:47 Blood Type O NEGATIVE 12/16/17 12:10 Antibody Screen Negative 12/16/17 12:10
[2017-12-17] MEDS ORDERED: ELIQUIS PO SCH (14:00)
--- NOTE | 2017-12-17 14:01 | Discharge Summary ---
Providers - Providers Date of Admission: 12/12/17 22:29 Date of discharge: 12/17/17 Attending physician: JITENDRA PHAM 12/12/17 19:35 Consult to Physician [CONS] Urgent Consulting Provider: JACK BOX Reason For Exam: femur fracture Place consult to:: Dr. Box Notified:: Via his phone Phone number called:: his number Was contact made?: Yes If yes, spoke with:: Dr. Box Time called:: 19:31 Comment:: Dr. Gutierrez ( dr) spoke with Dr. Box 12/15/17 11:02 Consult to Physician [CONS] Routine Consulting Provider: ORTIZ MEJIA Reason For Exam: medical clearance for ortho surgery Place consult to:: Dr. Mejia Notified:: [place] Was contact made?: Yes If yes, spoke with:: Dr. Mejia Time called:: 13:23 12/16/17 17:25 Physical Therapy Evaluation and Treat [CONS] Routine Comment: Reason For Exam: post op evaluation Weight bearing status?: Partial wt bearing Assistive devices?: Yes If so list: Walker Primary care physician: VENDOR SPECIALIST Hospitalization Condition: Stable Hospital course: Patient is a 77 yo man from the [place] (he used a wheelchair at the airport) with c/ o right thigh pain and swelling after fall on 12/11/17 in his Hotel room, he stated that he slipped while exiting bathroom at hotel. He was able to go to sleep but upon waking he was unable to place any weight onto right leg, so the came to [facility] ED where xrays revealed a comminuted fracture mid to distal third femur .Admission CT scan chest revealed pulmonary emboli... He has no insurance funding for inpatient acute or subacute rehab. I spoke with Dr. Mejia, ok to d/ c with Eliquis for dvt prophylaxis, but he doesn't think patient needs continuous churn buttermaker anticoagulation for PE which can be determined by his doctors in the [place]. I also called Dr. Box. /Acute right-sided pulmonary emboli s/p long distance travel unlikely fat embolism per Dr. Mejia /Right femur fracture after mechanical fall s/p ORIF on 12/16/[address] Jack Box /Rhabdomyolysis, traumatic, resolved - monitor CK levels /DVT Px start Eliquis Disposition: d/c with Eliquis Disposition: [id number]/[place]-[address] [facility] Time spent for discharge: 32 min Core Measure Documentation - Palliative Care Palliative Care/ Comfort Measures: Not Applicable - Core Measures Any of the following diagnoses?: DVT/PE - VTE Discharge Requirements Deep Vein Thrombosis/Pulmonary Embolism Present on Admission: Yes Has pt received <5 days of overlap therapy or INR<2.0: No (home on Eliquis) Anticoagulant overlap therapy prescribed at discharge: No Contraindication No Overlap Therapy order at DC: Not Indicated Exam - Physical Exam Narrative exam: GEN: WDWN, NAD, AWAKE, ALERT, ORIENTATED 3 HEENT: NCAT, EOMI, PERRL, OP Clear NECK: supple, no adenopathy, no thyromegaly, no JVD CVS/HEART: RRR, NORMAL S1S2, pulses present bilaterally CHEST/LUNGS: CTA B, Symmetrical chest expansion, good air entry bilaterally GI/Abdomen: soft, NTND, good bowel sounds, no guarding or rebound /Bladder: no suprapubic tenderness, no CVA or paraspinal tenderness EXT/Skin: no c/c/e, no obvious rash MSK: Limited range of motion of right hip but good distal pulses. Neuro: CN 2-12 grossly intact, no new focal deficits Psych: calm and withdrawn - Constitutional Vitals: Temp Pulse Resp BP Pulse Ox 98.4 F 78 18 107/52 93 12/17/17 02:39 12/17/17 02:39 12/17/17 02:39 12/17/17 02:39 12/17/17 00:03 Plan Activity: fall precautions Weight Bearing Status: Partial Weight Bearing ([address] Box) Diet: regular Additional Instructions: Follow up with PCP in as soon as possible. You needs hypercoaguable workup and to determine the length time you should be on the blood thinner Eliquis. Follow up with: PRIMARY CARE, [Primary Care Provider] - 3-5 Days Prescriptions: Apixaban [Eliquis] 10 mg PO BID #1 mo HYDROcodone/APAP 5-325 [[place] 5/325] 1 each PO Q4HR PRN #20 tablet PRN Reason: Pain , Severe (7-10)
[2017-12-17] MEDS ORDERED: NORCO 5/325 PO PRN (17:51)
[2017-12-17 18:32] LABS: Hematocrit 19.9 % (35.5-45.6)
[2017-12-17] MEDS ORDERED: NACL 0.9% 500 ML 500 ML IV ONE (18:37)
--- NOTE | 2017-12-17 23:28 | Progress Note ---
Assessment and Plan doing ok, continue PT and observation Subjective Date of service: 12/17/17 Interval history: c/o right thigh pain, PT started Objective Vital signs: Vital Signs - 12hr 12/17/17 19:56 Temperature 98.6 F Pulse Rate 92 H Respiratory 20 Rate Blood Pressure 108/49 O2 Sat by Pulse 92 Oximetry - Labs CBC & BMP: 12/17/17 17:46 12/15/17 06:47 Labs: Abnormal lab results 12/16/17 12/17/17 Range/Units 12:10 17:46 Hgb 7.0 L (11.8-15.2) gm/dl Hct 19.9 L* (35.5-45.6) % Crossmatch See Detail
[2017-12-18] MEDS: NORCO 10/325 PO PRN ×2 (01:00→10:31)
[2017-12-18] MEDS ORDERED: NACL 0.9% 500 ML 500 ML IV ONE (02:00)
[2017-12-18 10:11] LABS: Hematocrit 26.7 % (35.5-45.6); Hemoglobin 9.3 gm/dl (11.8-15.2); Mean Corpuscular HGB Conc 35 % (32-34); Mean Corpuscular Hemoglobin 31 pg (28-32); Mean Corpuscular Volume 89 fl (84-94); Red Blood Count 3.01 M/mm3 (3.65-5.03); Red Cell Distribution Width 14.7 % (13.2-15.2)
[2017-12-18 10:27] LABS: BUN/Creatinine Ratio 18; Blood Urea Nitrogen 9 mg/dL (9-20); Calcium 7.2 mg/dL (8.4-10.2); Hemolysis Index 20
[2017-12-18 11:22] LABS: Platelet Count 96 K/mm3 (140-440)
[2017-12-18] MEDS ORDERED: K-DUR PO ONE (15:38)
[2017-12-18] MEDS ORDERED: DULCOLAX PR ONE (15:39)
--- NOTE | 2017-12-18 15:49 | Progress Note ---
Assessment and Plan Assessment and plan: Patient is a 77 yo man from the [place] (he used a wheelchair at the airport) with c/ o right thigh pain and swelling after fall on 12/11/17 in his Hotel room, he stated that he slipped while exiting bathroom at hotel. He was able to go to sleep but upon waking he was unable to place any weight onto right leg, so the came to [facility] ED where xrays revealed a comminuted fracture mid to distal third femur. Admission CT scan chest revealed pulmonary emboli... /Acute right-sided pulmonary emboli d/w Dr. Mejia again today for clarification==> likely fat embolism per Dr. Mejia and patient doesn't need 6 month a/c, patient doesn't need anticoagulation for this PE per Dr. Mejia, pt just needs postop DVt prophylaxis /Acute blood loss anemia s/p 1unit prbc ordered FOBT, but pt is not cooperative repeat cbc in am /Right femur fracture after mechanical fall s/p ORIF on 12/16/[address] Jack Box /Rhabdomyolysis, traumatic, resolved - monitor CK levels /Hypokalemia replete and recheck /DVT Px called Dr. Box to discuss use SCD and aspirin for now Disposition: Improve function to travel. History Interval history: Pt seen and examined, follow up Right leg pains, s/p surgery. He denies any compliants. He never looked me in the face during this exam, he continued to work on his Laptop and look at his Calculator watch. He is suppose to go back to [place] tomorrow. He has no insurance funding for inpatient acute or subacute rehab. I spoke with Dr. Mejia, ok to d/c with Eliquis for dvt prophylaxis, but he doesn't think patient needs longterm anticoagulation for PE which can be determined by his doctors in the [place]. I also called Dr. Box. Hospitalist Physical - Constitutional Vitals: Temp Pulse Resp BP Pulse Ox 98.5 F 91 H 18 93/44 100 12/18/17 12:53 12/18/17 07:26 12/18/17 12:53 12/18/17 12:53 12/18/17 07:26 Results - Labs CBC & Chem 7: 12/18/17 09:40 12/18/17 09:40 Labs: Laboratory Last Values WBC 5.9 K/mm3 (4.5-11.0) 12/18/17 09:40 RBC 3.01 M/mm3 (3.65-5.03) L 12/18/17 09:40 Hgb 9.3 gm/dl (11.8-15.2) L 12/18/17 09:40 Hct 26.7 % (35.5-45.6) L D 12/18/17 09:40 MCV 89 fl (84-94) 12/18/17 09:40 MCH 31 pg (28-32) 12/18/17 09:40 MCHC 35 % (32-34) H 12/18/17 09:40 RDW 14.7 % (13.2-15.2) 12/18/17 09:40 Plt Count 96 K/mm3 (140-440) L 12/18/17 09:40 Lymph % (Auto) 7.1 % (13.4-35.0) L 12/15/17 06:47 [place] % (Auto) 11.9 % (0.0-7.3) H 12/15/17 06:47 Eos % (Auto) 0.0 % (0.0-4.3) 12/15/17 06:47 Baso % (Auto) 0.2 % (0.0-1.8) 12/15/17 06:47 Lymph # 0.3 K/mm3 (1.2-5.4) L 12/15/17 06:47 [place] # 0.5 K/mm3 (0.0-0.8) 12/15/17 06:47 Eos # 0.0 K/mm3 (0.0-0.4) 12/15/17 06:47 Baso # 0.0 K/mm3 (0.0-0.1) 12/15/17 06:47 Seg Neutrophils % 80.8 % (40.0-70.0) H 12/15/17 06:47 Seg Neutrophils # 3.4 K/mm3 (1.8-7.7) 12/15/17 06:47 PT 13.4 Sec. (12.2-14.9) 12/12/17 21:52 INR 0.97 (0.87-1.13) 12/12/17 21:52 APTT 35.1 Sec. (24.2-36.6) 12/12/17 21:52 Heparin Anti-Xa Level 0.69 U.I./ml (0.3-0.7) 12/15/17 20:48 Sodium 137 mmol/L (137-145) 12/18/17 09:40 Potassium 3.1 mmol/L (3.6-5.0) L 12/18/17 09:40 Chloride 97.7 mmol/L (98-107) L 12/18/17 09:40 Carbon Dioxide 20 mmol/L (22-30) L 12/18/17 09:40 Anion Gap 22 mmol/L 12/18/17 09:40 BUN 9 mg/dL (9-20) 12/18/17 09:40 Creatinine 0.5 mg/dL (0.8-1.5) L 12/18/17 09:40 Estimated GFR > 60 ml/min 12/18/17 09:40 BUN/Creatinine Ratio 18 % 12/18/17 09:40 Glucose 103 mg/dL (75-100) H 12/18/17 09:40 Calcium 7.2 mg/dL (8.4-10.2) L 12/18/17 09:40 Total Bilirubin 0.80 mg/dL (0.1-1.2) 12/15/17 06:47 AST 24 units/L (5-40) 12/15/17 06:47 ALT 17 units/L (7-56) 12/15/17 06:47 Alkaline Phosphatase 51 units/L (35-129) 12/15/17 06:47 Total Creatine Kinase 177 units/L (55-170) H 12/16/17 03:42 CK-MB (CK-2) 2.2 ng/mL (0.0-4.0) 12/13/17 06:40 CK-MB (CK-2) Rel Index 0.2 (0-4) 12/13/17 06:40 Troponin T < 0.010 ng/mL (0.00-0.029) 12/12/17 19:54 Total Protein 5.0 g/dL (6.3-8.2) L D 12/15/17 06:47 Albumin 3.1 g/dL (3.9-5) L 12/15/17 06:47 Albumin/Globulin Ratio 1.6 % 12/15/17 06:47 Blood Type O NEGATIVE 12/16/17 12:10 Antibody Screen Negative 12/16/17 12:10 Crossmatch See Detail 12/16/17 12:10
[2017-12-18] MEDS ORDERED: ASPIRIN PO SCH (16:00)
[2017-12-18 17:58] LABS: INR 1.13 (0.87-1.13)
[2017-12-18] MEDS ORDERED: COUMADIN PO ONE (20:59)
[2017-12-18] MEDS ORDERED: ELIQUIS PO SCH ×2 (22:00)
[2017-12-19 04:33] LABS: Hematocrit 23.8 % (35.5-45.6); Hemoglobin 8.2 gm/dl (11.8-15.2); Mean Corpuscular HGB Conc 34 % (32-34); Mean Corpuscular Hemoglobin 31 pg (28-32); Mean Corpuscular Volume 89 fl (84-94); Platelet Count 172 K/mm3 (140-440); Red Blood Count 2.67 M/mm3 (3.65-5.03); Red Cell Distribution Width 15.5 % (13.2-15.2)
[2017-12-19 04:53] LABS: BUN/Creatinine Ratio 22; Blood Urea Nitrogen 11 mg/dL (9-20); Calcium 6.6 mg/dL (8.4-10.2); Hemolysis Index 3
[2017-12-19] MEDS: MORPHINE IV PRN ×2 (09:06→17:48)
[2017-12-19] MEDS: NORCO 10/325 PO PRN ×2 (13:25→21:21)
[2017-12-19 13:33] LABS: INR 1.71 (0.87-1.13)
--- NOTE | 2017-12-19 15:28 | Progress Note ---
Assessment and Plan Assessment and plan: Patient is a 77 yo man from the [place] (he used a wheelchair at the airport) with c/ o right thigh pain and swelling after fall on 12/11/17 in his Hotel room, he stated that he slipped while exiting bathroom at hotel. He was able to go to sleep but upon waking he was unable to place any weight onto right leg, so the came to [facility] ED where xrays revealed a comminuted fracture mid to distal third femur. Admission CT scan chest revealed pulmonary emboli... /Acute right-sided pulmonary emboli d/w Dr. Mejia again today for clarification==> likely fat embolism per Dr. Mejia and patient doesn't need 6 month a/c, patient doesn't need anticoagulation for this PE per Dr. Mejia, pt just needs postop DVt prophylaxis /Acute blood loss anemia s/p 1unit prbc ordered FOBT, but pt is not cooperative repeat cbc in am /Right femur fracture after mechanical fall s/p ORIF on 12/16/[address] Jack Box /Rhabdomyolysis, traumatic, resolved - monitor CK levels /Hypokalemia replete and recheck /DVT Px called Dr. Box to discuss use SCD and aspirin for now Disposition: Improve function to travel. Okay to fly back to on dvt prophylaxis per Dr. Mejia. INR doesn't need to be therapeutic prior to leaving. History Interval history: Pt seen and examined, follow up Right leg pains, s/p surgery. He denies any compliants. He never looked me in the face during this exam, he continued to work on his Laptop and look at his Calculator watch. He is suppose to go back to tomorrow. He has no insurance funding for inpatient acute or subacute rehab. I spoke with Dr. Mejia, ok to d/c with Eliquis for dvt prophylaxis, but he doesn't think patient needs nursing home anticoagulation for PE which can be determined by his doctors in the [place]. I also called Dr. Box. Hospitalist Physical - Physical exam Narrative exam: GEN: WDWN, NAD, AWAKE, ALERT, ORIENTATED 3 HEENT: NCAT, EOMI, PERRL, OP Clear NECK: supple, no adenopathy, no thyromegaly, no JVD CVS/HEART: RRR, NORMAL S1S2, pulses present bilaterally CHEST/LUNGS: CTA B, Symmetrical chest expansion, good air entry bilaterally GI/Abdomen: soft, NTND, good bowel sounds, no guarding or rebound /Bladder: no suprapubic tenderness, no CVA or paraspinal tenderness EXT/Skin: no c/c/e, no obvious rash MSK: Limited range of motion of right hip but good distal pulses. Neuro: CN 2-12 grossly intact, no new focal deficits Psych: calm and withdrawn - Constitutional Vitals: Temp Pulse Resp BP Pulse Ox 99.0 F 84 18 109/61 100 12/19/17 07:58 12/19/17 07:58 12/19/17 07:58 12/19/17 07:58 12/19/17 07:58 Results - Labs CBC & Chem 7: 12/19/17 04:11 12/19/17 04:11 Labs: Laboratory Last Values WBC 7.8 K/mm3 (4.5-11.0) 12/19/17 04:11 RBC 2.67 M/mm3 (3.65-5.03) L 12/19/17 04:11 Hgb 8.2 gm/dl (11.8-15.2) L 12/19/17 04:11 Hct 23.8 % (35.5-45.6) L 12/19/17 04:11 MCV 89 fl (84-94) 12/19/17 04:11 MCH 31 pg (28-32) 12/19/17 04:11 MCHC 34 % (32-34) 12/19/17 04:11 RDW 15.5 % (13.2-15.2) H 12/19/17 04:11 Plt Count 172 K/mm3 (140-440) 12/19/17 04:11 Lymph % (Auto) 7.1 % (13.4-35.0) L 12/15/17 06:47 [place] % (Auto) 11.9 % (0.0-7.3) H 12/15/17 06:47 Eos % (Auto) 0.0 % (0.0-4.3) 12/15/17 06:47 Baso % (Auto) 0.2 % (0.0-1.8) 12/15/17 06:47 Lymph # 0.3 K/mm3 (1.2-5.4) L 12/15/17 06:47 [place] # 0.5 K/mm3 (0.0-0.8) 12/15/17 06:47 Eos # 0.0 K/mm3 (0.0-0.4) 12/15/17 06:47 Baso # 0.0 K/mm3 (0.0-0.1) 12/15/17 06:47 Seg Neutrophils % 80.8 % (40.0-70.0) H 12/15/17 06:47 Seg Neutrophils # 3.4 K/mm3 (1.8-7.7) 12/15/17 06:47 PT 21.1 Sec. (12.2-14.9) H 12/19/17 12:55 INR 1.71 (0.87-1.13) H 12/19/17 12:55 APTT 35.1 Sec. (24.2-36.6) 12/12/17 21:52 Heparin Anti-Xa Level 0.69 U.I./ml (0.3-0.7) 12/15/17 20:48 Sodium 139 mmol/L (137-145) 12/19/17 04:11 Potassium 3.5 mmol/L (3.6-5.0) L 12/19/17 04:11 Chloride 101.4 mmol/L (98-107) 12/19/17 04:11 Carbon Dioxide 23 mmol/L (22-30) 12/19/17 04:11 Anion Gap 18 mmol/L 12/19/17 04:11 BUN 11 mg/dL (9-20) 12/19/17 04:11 Creatinine 0.5 mg/dL (0.8-1.5) L 12/19/17 04:11 Estimated GFR > 60 ml/min 12/19/17 04:11 BUN/Creatinine Ratio 22 % 12/19/17 04:11 Glucose 116 mg/dL (75-100) H 12/19/17 04:11 Calcium 6.6 mg/dL (8.4-10.2) L 12/19/17 04:11 Total Bilirubin 0.80 mg/dL (0.1-1.2) 12/15/17 06:47 AST 24 units/L (5-40) 12/15/17 06:47 ALT 17 units/L (7-56) 12/15/17 06:47 Alkaline Phosphatase 51 units/L (35-129) 12/15/17 06:47 Total Creatine Kinase 177 units/L (55-170) H 12/16/17 03:42 CK-MB (CK-2) 2.2 ng/mL (0.0-4.0) 12/13/17 06:40 CK-MB (CK-2) Rel Index 0.2 (0-4) 12/13/17 06:40 Troponin T < 0.010 ng/mL (0.00-0.029) 12/12/17 19:54 Total Protein 5.0 g/dL (6.3-8.2) L D 12/15/17 06:47 Albumin 3.1 g/dL (3.9-5) L 12/15/17 06:47 Albumin/Globulin Ratio 1.6 % 12/15/17 06:47 Blood Type O NEGATIVE 12/16/17 12:10 Antibody Screen Negative 12/16/17 12:10 Crossmatch See Detail 12/16/17 12:10
[2017-12-19] MEDS ORDERED: COUMADIN PO SCH ×2 (17:00)
[2017-12-20] MEDS: NORCO 10/325 PO PRN (02:40)
[2017-12-20 04:58] LABS: Hematocrit 23.9 % (35.5-45.6); Hemoglobin 8.4 gm/dl (11.8-15.2); Mean Corpuscular HGB Conc 35 % (32-34); Mean Corpuscular Hemoglobin 30 pg (28-32); Mean Corpuscular Volume 86 fl (84-94); Red Blood Count 2.78 M/mm3 (3.65-5.03); Red Cell Distribution Width 15.1 % (13.2-15.2)
[2017-12-20 05:00] LABS: BUN/Creatinine Ratio 26; Blood Urea Nitrogen 13 mg/dL (9-20); Hemolysis Index 20
[2017-12-20 05:29] LABS: INR 4.31 (0.87-1.13)
[2017-12-20 06:12] LABS: Platelet Count 90 K/mm3 (140-440)
[2017-12-20] MEDS: MORPHINE IV PRN ×2 (08:18→15:02)
[2017-12-20] MEDS ORDERED: K-DUR PO ONE (14:19)
[2017-12-20] MEDS: LEVOPHED DRIP 4 MG/NS 250 ML 4 MG/250 ML BAG IV SCH ×3 (19:00→23:20)
[2017-12-20 19:47] LABS: Hematocrit 32.7 % (35.5-45.6); Hemoglobin 10.4 gm/dl (11.8-15.2); Mean Corpuscular HGB Conc 32 % (32-34); Mean Corpuscular Hemoglobin 30 pg (28-32); Mean Corpuscular Volume 95 fl (84-94); Red Blood Count 3.46 M/mm3 (3.65-5.03); Red Cell Distribution Width 16.3 % (13.2-15.2)
--- NOTE | 2017-12-20 19:52 | Event Note ---
Date: 12/20/17 Code Met was called as patient was in respiratory distress,hypotensive and tachycardic. When I evaluated the patient ,Lower extremity swollen ,red , cold and clammy. Vascular surgeon Max Grewal at the bed side Patient was hypotensive and diaphoretic. Transferred the patient to ICU Stat labs,EKG ordered,Pressors to be started D/W superintendent local the new events and ABG findings. He discussed with respiratory Patient is critically ill. Full code status. Attending Physician was informed by the nurse. Plan of care d/w ICU charge nurse, Signed off to covering Hospitalist . Unable to contact the family.
[2017-12-20] MEDS ORDERED: ADRENALIN ONE (19:57)
[2017-12-20] MEDS ORDERED: CALCIUM CHLORIDE IV ONE (19:57)
[2017-12-20] MEDS ORDERED: VERSED IV ONE (19:57)
[2017-12-20] MEDS ORDERED: MAGNESIUM SULFATE ONE (19:57)
[2017-12-20] MEDS ORDERED: ZEMURON IV ONE (19:57)
[2017-12-20] MEDS ORDERED: SODIUM BICARBONATE IV ONE (19:57)
[2017-12-20] MEDS ORDERED: NACL 0.9% 1000 ML 1,000 ML ONE (19:58)
[2017-12-20 20:12] LABS: Albumin 2.8 g/dL (3.9-5); Calcium 7.6 mg/dL (8.4-10.2); Chol/HDL Ratio 5.91 %; Magnesium 3.4 mg/dL (1.7-2.3)
[2017-12-20 20:30] LABS: INR TNR (0.87-1.13); Partial Thromboplastin Time TNR Sec. (24.2-36.6)
[2017-12-20 20:56] LABS: Total Cells Counted 200
[2017-12-20 20:57] LABS: Basophils % (Manual) 0 % (0.0-1.8); Eosinophils % (Manual) 0 % (0.0-4.3); Myelocytes # (Manual) 1.5 K/mm3; Nucleated Red Blood Cells 0.5 % (0.0-0.9)
[2017-12-20 20:58] LABS: Anisocytosis Few; Platelet Estimate Consistent w Auto
[2017-12-20] MEDS ORDERED: fentaNYL DRIP Premix 2,000 MCG/100 ML BAG IV SCH (21:00)
[2017-12-20] MEDS ORDERED: CORDARONE 900 MG in D5W 482 ML IV SCH (21:00)
[2017-12-20] MEDS ORDERED: D5W 1,000 ML with SODIUM BICARBONATE 150 MEQ IV ONE (21:00)
[2017-12-20 21:03] LABS: Platelet Count 26 K/mm3 (140-440)
--- NOTE | 2017-12-20 21:10 | Event Note ---
Date: 12/20/17 I was called late this afternoon to evaluate patient for a cold right lower extremity. I requested that a CTA of the lower extremities be done prior to arrival since US was not available. I was later informed that the CTA could not be done because there was no adequate IV access. I arrived at the hospital about 7pm. Patient was being attended to by the OFFICE CLINICIAN for labored respirations. Patient was immediately transferred to the ICU. In the ICU, resuscitation efforts continued. ABG was drawn by me from the right brachial artery under US guidance becauses pulses were weak. Patient was awake but not responsive. I intended to place an arm line, but interrogation of the superficial veins revealed that the upper arm cephalic and basilic veins were thrombosed. The thombi appeared to me to be fresh although some areas of thicker density were noted. The GSVs were thrombosed bilaterally. The righ jugular vein was flat. Since the patient had an INR of greater than 4, I wanted to avoid a central line superiorly. I placed a left CFV triple lumen with US guidance under sterile conditions. At this poitn, his respirations became shallow. He became bradycardic. He qwas emergently intubated. I attempted to place an art line, but he became pulseless. A code was called and he was eventually resuscitated. An art line was placed with US in the right radial artery. On exam, both LEs are difficult to examine with a doppler because of hypotension. Patient is now on maximum levophed gtt. Duplex of the proximal arterial structures seems to show they are pqatent and pulsatile. The distal RLE is blue and cool. Capillary refill is slow at best. Patient is on Coumadin with INR of 4.5. He was on a heparin gtt earlier this week. Platelet count was 90 when last checked. Plt count is pending right now. He was dx with PE a week ago based on CTA, They were snall emboli in the peripheral right pulmonary circulation. Patient is from [facility]. He had fallen in the shower of a hotel a week ago. He fractured his right femur. Only listed allergy is to latex. Overall, patient is in extremis at the moment. It is not clear what issue is affecting his leg, be it venous or arterial pathology. He had a venous duplex of the legs earlier this week that showed no DVT. Also, that study did not show thrombus in the GSVs which is clearly visible now. Recommend continuing resuscitation. Patient is in no condition for intervention at the moment. If situation improves, further diagnostic testing will be obtained.
[2017-12-20 21:13] LABS: INR TNR (0.87-1.13); Partial Thromboplastin Time TNR Sec. (24.2-36.6)
--- NOTE | 2017-12-20 21:14 | XRay Report ---
FINAL REPORT EXAM: XR CHEST 1V AP HISTORY: post intubation TECHNIQUE: AP portable view of the chest PRIORS: None. FINDINGS: Lines, tubes, and devices: Endotracheal tube is in satisfactory position terminating 6.5 cm above the isabel. Lungs and pleura: Trachea is normal in position. Lungs are clear of infiltrate, pleural effusion, vascular congestion, or pneumothorax. Cardiomediastinal silhouette: Cardiac and mediastinal silhouettes are unremarkable. Mild unfolding of the aorta is likely age related. Other: Bony structures are intact. IMPRESSION: No acute cardiopulmonary process seen. Satisfactory ETT placement
--- NOTE | 2017-12-20 21:31 | Event Note ---
Date: 12/20/17 Platelet count is 26K. INR is greater than 17. He was exposed to heparin earlier. He was started on warfarin as well. 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 Recommend avoid all heparin products. Consult hematology. Patient is coagulaopathic right now so no further attempts at anticoagulation at this time.
--- NOTE | 2017-12-20 21:36 | Progress Note ---
Assessment and Plan s/p ORIF right femur heparin induced thombocytopenia continue supportive care and observation Subjective Date of service: 12/20/17 Interval history: patient currently intubated and sedated in ICU.... Objective Vital signs: Vital Signs - 12hr 12/20/17 12/20/17 12/20/17 12:06 16:00 17:30 Temperature 99.0 F 99.5 F Pulse Rate 134 H Respiratory 20 22 Rate Blood Pressure 151/80 Blood Pressure 136/80 [Right] O2 Sat by Pulse 98 100 Oximetry Narrative Exam: Right LE - distal extremity cold and blue pulses faint, right thigh compartments soft compressible - Labs CBC & BMP: 12/20/17 19:40 12/20/17 19:40 Labs: Abnormal lab results 12/20/17 12/20/17 12/20/17 Range/Units 04:23 04:23 04:23 WBC (4.5-11.0) K/mm3 RBC 2.78 L (3.65-5.03) M/mm3 Hgb 8.4 L (11.8-15.2) gm/dl Hct 23.9 L (35.5-45.6) % MCV (84-94) fl MCHC 35 H (32-34) % RDW (13.2-15.2) % Plt Count 90 L (140-440) K/mm3 Seg Neuts % (Manual) (40.0-70.0) % Lymphocytes % (Manual) (13.4-35.0) % Seg Neutrophils # Man (1.8-7.7) K/mm3 Monocytes # (Manual) (0.0-0.8) K/mm3 PT 44.5 H (12.2-14.9) Sec. INR 4.31 H (0.87-1.13) POC ABG pH (7.35-7.45) POC ABG pCO2 (35-45) POC ABG pO2 (80-105) Potassium 3.1 L (3.6-5.0) mmol/L Chloride (98-107) mmol/L Carbon Dioxide (22-30) mmol/L BUN (9-20) mg/dL Creatinine 0.5 L (0.8-1.5) mg/dL Glucose 129 H (75-100) mg/dL POC Glucose (70-105) Calcium 7.0 L (8.4-10.2) mg/dL Phosphorus (2.5-4.5) mg/dL Magnesium (1.7-2.3) mg/dL Total Bilirubin (0.1-1.2) mg/dL AST (5-40) units/L Total Creatine Kinase (55-170) units/L Troponin T (0.00-0.029) ng/mL Total Protein (6.3-8.2) g/dL Albumin (3.9-5) g/dL Triglycerides (2-149) mg/dL HDL Cholesterol (40-59) mg/dL 12/20/17 12/20/17 12/20/17 Range/Units 18:11 18:32 19:21 WBC (4.5-11.0) K/mm3 RBC (3.65-5.03) M/mm3 Hgb (11.8-15.2) gm/dl Hct (35.5-45.6) % MCV (84-94) fl MCHC (32-34) % RDW (13.2-15.2) % Plt Count (140-440) K/mm3 Seg Neuts % (Manual) (40.0-70.0) % Lymphocytes % (Manual) (13.4-35.0) % Seg Neutrophils # Man (1.8-7.7) K/mm3 Monocytes # (Manual) (0.0-0.8) K/mm3 PT (12.2-14.9) Sec. INR (0.87-1.13) POC ABG pH 7.174 L (7.35-7.45) POC ABG pCO2 16.6 L (35-45) POC ABG pO2 383 H (80-105) Potassium (3.6-5.0) mmol/L Chloride (98-107) mmol/L Carbon Dioxide (22-30) mmol/L BUN (9-20) mg/dL Creatinine (0.8-1.5) mg/dL Glucose (75-100) mg/dL POC Glucose 247 H (70-105) Calcium (8.4-10.2) mg/dL Phosphorus (2.5-4.5) mg/dL Magnesium (1.7-2.3) mg/dL Total Bilirubin (0.1-1.2) mg/dL AST (5-40) units/L Total Creatine Kinase (55-170) units/L Troponin T 0.150 H* (0.00-0.029) ng/mL Total Protein (6.3-8.2) g/dL Albumin (3.9-5) g/dL Triglycerides (2-149) mg/dL HDL Cholesterol (40-59) mg/dL 12/20/17 12/20/17 12/20/17 Range/Units 19:40 19:40 20:58 WBC 33.1 H (4.5-11.0) K/mm3 RBC 3.46 L (3.65-5.03) M/mm3 Hgb 10.4 L (11.8-15.2) gm/dl Hct 32.7 L D (35.5-45.6) % MCV 95 H (84-94) fl MCHC (32-34) % RDW 16.3 H (13.2-15.2) % Plt Count 26 L (140-440) K/mm3 Seg Neuts % (Manual) 80.5 H (40.0-70.0) % Lymphocytes % (Manual) 7.0 L (13.4-35.0) % Seg Neutrophils # Man 26.6 H (1.8-7.7) K/mm3 Monocytes # (Manual) 2.0 H (0.0-0.8) K/mm3 PT (12.2-14.9) Sec. INR (0.87-1.13) POC ABG pH 6.992 L (7.35-7.45) POC ABG pCO2 (35-45) POC ABG pO2 407 H (80-105) Potassium (3.6-5.0) mmol/L Chloride 93.7 L (98-107) mmol/L Carbon Dioxide 9 L* D (22-30) mmol/L BUN 25 H (9-20) mg/dL Creatinine 2.1 H D (0.8-1.5) mg/dL Glucose 226 H (75-100) mg/dL POC Glucose (70-105) Calcium 7.6 L (8.4-10.2) mg/dL Phosphorus 7.50 H (2.5-4.5) mg/dL Magnesium 3.40 H (1.7-2.3) mg/dL Total Bilirubin 1.90 H (0.1-1.2) mg/dL AST 91 H (5-40) units/L Total Creatine Kinase 635 H (55-170) units/L Troponin T 0.181 H* D (0.00-0.029) ng/mL Total Protein 5.5 L (6.3-8.2) g/dL Albumin 2.8 L (3.9-5) g/dL Triglycerides 254 H (2-149) mg/dL HDL Cholesterol 23 L (40-59) mg/dL
[2017-12-20] MEDS ORDERED: NACL 0.9% 1000 ML 1,000 ML IV SCH (23:00)
[2017-12-20] MEDS ORDERED: INTROPIN DRIP 800 MG/D5W 250 ML 800 MG/250 ML BAG IV SCH (23:00)
[2017-12-20] MEDS ORDERED: NACL ONE (23:31)
[2017-12-20] MEDS ORDERED: Vasostrict 20 UNIT in NACL 0.9% 100 ML IV SCH (23:45)
[2017-12-20 23:59] LABS: Hematocrit 26.9 % (35.5-45.6); Hemoglobin 8.3 gm/dl (11.8-15.2); Mean Corpuscular HGB Conc 31 % (32-34); Mean Corpuscular Hemoglobin 30 pg (28-32); Mean Corpuscular Volume 97 fl (84-94); Red Blood Count 2.78 M/mm3 (3.65-5.03); Red Cell Distribution Width 16.7 % (13.2-15.2)
[2017-12-21] MEDS ORDERED: SODIUM BICARBONATE IV ONE ×3 (00:06→08:50)
--- NOTE | 2017-12-21 00:40 | Event Note ---
Date: 12/21/17 (code blue) CODE [facility] called On my arrival Dr. Gutierrez ER physician present As per report patient had bradycardia later went into PEA, started CPR and received epinephrine return of pulse. After few minutes patient coded again. Similar chain of events with bradycardia followed by PEA. Started CPR and multiple rounds of epinephrine given ATROPINE given because of bradycardia. Patient also received calcium. Mag and bicarbonate. Patient already on bicarbonate drip. Patient hypotensive despite being maxed out on 3 pressors. And started on epinephrine drip. Multiple attempts were made by myself as well as the staff to reach his long distance but no answer. Left voice mail for the to call us back. Discussed with the patient's vascular surgeon Dr. Nash. Platelet count is 26K. INR is greater than 17. He was exposed to heparin earlier. He was started on warfarin as well. 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 He is extremely coagulopathic and critical and unstable for any imaging. Extremely critical and extremely poor prognosis. Pupils are fixed and dilated. Left upper extremity mottled right lower extremity cold pulseless cyanotic and mottled. Patient is also generally pale and cyanotic. Possible considerations are massive PE versus bleeding, patient to critical and unstable for further investigations. Also he is already anticoagulated with extremely high INR.
[2017-12-21] MEDS ORDERED: VITAMIN K (ADULT ONLY) 10 MG in NACL 0.9% 50 ML IV ONE ×2 (00:58→06:58)
[2017-12-21] MEDS ORDERED: ADRENALIN 8 MG in NACL 0.9% 250ML 242 ML IV SCH (01:00)
[2017-12-21 01:26] LABS: Basophils % (Manual) 0 % (0.0-1.8); Eosinophils % (Manual) 0 % (0.0-4.3); Myelocytes # (Manual) 0.8 K/mm3; Nucleated Red Blood Cells 3.5 % (0.0-0.9); Total Cells Counted 200
[2017-12-21 01:28] LABS: Anisocytosis 2+; Band Neutrophils # (Manual) 3.5 K/mm3; Burr Cells 2+
[2017-12-21 01:29] LABS: Giant Platelets Few; Hypochromasia Few; Ovalocytes Few; Platelet Estimate Consistent w Auto; Schistocytes Few; Tear Drop Cells Few
[2017-12-21] MEDS: LEVOPHED DRIP 4 MG/NS 250 ML 4 MG/250 ML BAG IV SCH ×2 (01:30→04:30)
[2017-12-21 02:02] LABS: Platelet Count 89 K/mm3 (140-440)
--- NOTE | 2017-12-21 03:29 | XRay Report ---
FINAL REPORT EXAM: XR CHEST 1V AP HISTORY: follow up respiratory failure COMPARISON: None available. FINDINGS: Frontal view(s) of the chest obtained. ET tube in stable position. Distal tip approximately 6 centimeters from the isabel. Cardiac silhouette within normal limits. Trace left-sided pleural effusion which appears to be new from prior study. Lungs otherwise clear.. No pneumothorax. IMPRESSION: Trace left-sided pleural effusion new from prior study. ET tube remains in place.
[2017-12-21 04:39] LABS: INR > 17.67 (0.87-1.13); Partial Thromboplastin Time 114.3 Sec. (24.2-36.6)
[2017-12-21] MEDS ORDERED: LEVOPHED 8 MG in NACL 0.9% 250ML 242 ML IV SCH (08:00)
--- NOTE | 2017-12-21 08:15 | Progress Note ---
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 Second dose given this morning. Switch to argatroban when coags are more reasonable. 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 Patient is too ill for any intervention right now. (3) Unresponsive Current Visit: Yes Status: Acute Plan to address problem: Unknown prognosis. Subjective Date of service: 12/21/17 Principal diagnosis: HIT Interval history: Patient is unresponsive. Objective - Constitutional Vitals: Vital Signs - 12hr 12/20/17 12/20/17 12/20/17 21:33 21:51 22:00 Temperature 97.4 F L Pulse Rate 132 H Pulse Rate [ 130 H Apical] Pulse Rate [ Left Posterior Tibial] Pulse Rate [ 130 H Left Radial] Pulse Rate [ 130 H Right Radial] Respiratory 18 22 Rate Blood Pressure 77/37 O2 Sat by Pulse 100 Oximetry 12/20/17 12/20/17 12/20/17 22:01 22:11 22:21 Temperature Pulse Rate 129 H 130 H 124 H Pulse Rate [ Apical] Pulse Rate [ Left Posterior Tibial] Pulse Rate [ Left Radial] Pulse Rate [ Right Radial] Respiratory 18 19 18 Rate Blood Pressure 77/37 59/34 76/21 O2 Sat by Pulse Oximetry 12/20/17 12/20/17 12/20/17 22:31 22:41 22:51 Temperature Pulse Rate 122 H 122 H 127 H Pulse Rate [ Apical] Pulse Rate [ Left Posterior Tibial] Pulse Rate [ Left Radial] Pulse Rate [ Right Radial] Respiratory 23 23 30 H Rate Blood Pressure 80/28 95/20 111/24 O2 Sat by Pulse 94 Oximetry 12/20/17 12/20/17 12/20/17 23:01 23:11 23:21 Temperature Pulse Rate 128 H 128 H 126 H Pulse Rate [ Apical] Pulse Rate [ Left Posterior Tibial] Pulse Rate [ Left Radial] Pulse Rate [ Right Radial] Respiratory 31 H 32 H 25 H Rate Blood Pressure 99/23 99/23 99/23 O2 Sat by Pulse 93 93 97 Oximetry 12/20/17 12/20/17 12/20/17 23:31 23:41 23:51 Temperature Pulse Rate 122 H 113 H 126 H Pulse Rate [ Apical] Pulse Rate [ Left Posterior Tibial] Pulse Rate [ Left Radial] Pulse Rate [ Right Radial] Respiratory 31 H 41 H 23 Rate Blood Pressure 68/25 89/55 99/57 O2 Sat by Pulse 95 86 88 Oximetry 12/21/17 12/21/17 12/21/17 00:02 00:10 00:17 Temperature Pulse Rate 120 H 76 86 Pulse Rate [ Apical] Pulse Rate [ Left Posterior Tibial] Pulse Rate [ Left Radial] Pulse Rate [ Right Radial] Respiratory Rate Blood Pressure 159/85 O2 Sat by Pulse 98 100 86 Oximetry 12/21/17 12/21/17 12/21/17 00:20 00:30 00:40 Temperature Pulse Rate 140 H 138 H 138 H Pulse Rate [ Apical] Pulse Rate [ Left Posterior Tibial] Pulse Rate [ Left Radial] Pulse Rate [ Right Radial] Respiratory 27 H 27 H 27 H Rate Blood Pressure 150/84 132/66 124/67 O2 Sat by Pulse 86 85 84 Oximetry 12/21/17 12/21/17 12/21/17 00:50 01:00 01:10 Temperature Pulse Rate 137 H 136 H 135 H Pulse Rate [ Apical] Pulse Rate [ Left Posterior Tibial] Pulse Rate [ Left Radial] Pulse Rate [ Right Radial] Respiratory 27 H 28 H 28 H Rate Blood Pressure 117/54 117/59 116/52 O2 Sat by Pulse 84 85 Oximetry 12/21/17 12/21/17 12/21/17 01:20 01:30 01:40 Temperature Pulse Rate 134 H 134 H 133 H Pulse Rate [ Apical] Pulse Rate [ Left Posterior Tibial] Pulse Rate [ Left Radial] Pulse Rate [ Right Radial] Respiratory 28 H 28 H 29 H Rate Blood Pressure 113/50 126/66 119/52 O2 Sat by Pulse 90 95 Oximetry 12/21/17 12/21/17 12/21/17 01:50 02:00 02:10 Temperature Pulse Rate 133 H 130 H 130 H Pulse Rate [ Apical] Pulse Rate [ Left Posterior Tibial] Pulse Rate [ Left Radial] Pulse Rate [ Right Radial] Respiratory 29 H 27 H 29 H Rate Blood Pressure 133/59 133/59 157/61 O2 Sat by Pulse 86 Oximetry 12/21/17 12/21/17 12/21/17 02:20 02:23 02:30 Temperature 96.6 F L Pulse Rate 130 H 130 H Pulse Rate [ Apical] Pulse Rate [ Left Posterior Tibial] Pulse Rate [ Left Radial] Pulse Rate [ Right Radial] Respiratory 30 H 29 H Rate Blood Pressure 121/42 145/64 O2 Sat by Pulse Oximetry 12/21/17 12/21/17 12/21/17 02:40 02:50 03:00 Temperature Pulse Rate 129 H 128 H 128 H Pulse Rate [ Apical] Pulse Rate [ Left Posterior Tibial] Pulse Rate [ Left Radial] Pulse Rate [ Right Radial] Respiratory 29 H 30 H 29 H Rate Blood Pressure 138/67 131/62 126/68 O2 Sat by Pulse 83 L 89 Oximetry 12/21/17 12/21/17 12/21/17 03:10 03:20 03:30 Temperature Pulse Rate 128 H 127 H 127 H Pulse Rate [ Apical] Pulse Rate [ Left Posterior Tibial] Pulse Rate [ Left Radial] Pulse Rate [ Right Radial] Respiratory 30 H 30 H 30 H Rate Blood Pressure 126/68 128/68 127/65 O2 Sat by Pulse 71 L Oximetry 12/21/17 12/21/17 12/21/17 03:40 03:50 04:00 Temperature 95.3 F L Pulse Rate 126 H 126 H 116 H Pulse Rate [ 110 H Apical] Pulse Rate [ 110 H Left Posterior Tibial] Pulse Rate [ 110 H Left Radial] Pulse Rate [ 110 H Right Radial] Respiratory 30 H 30 H 30 H Rate Blood Pressure 127/65 120/79 156/77 O2 Sat by Pulse 92 Oximetry 12/21/17 12/21/17 12/21/17 04:10 04:20 04:30 Temperature Pulse Rate 124 H 124 H 124 H Pulse Rate [ Apical] Pulse Rate [ Left Posterior Tibial] Pulse Rate [ Left Radial] Pulse Rate [ Right Radial] Respiratory 30 H 30 H 30 H Rate Blood Pressure 139/70 128/77 146/53 O2 Sat by Pulse Oximetry 12/21/17 12/21/17 12/21/17 04:40 04:50 05:00 Temperature Pulse Rate 123 H 121 H 117 H Pulse Rate [ Apical] Pulse Rate [ Left Posterior Tibial] Pulse Rate [ Left Radial] Pulse Rate [ Right Radial] Respiratory 30 H 24 30 H Rate Blood Pressure 146/53 114/50 134/60 O2 Sat by Pulse 86 Oximetry 12/21/17 12/21/17 12/21/17 05:10 05:20 05:30 Temperature Pulse Rate 115 H 113 H 111 H Pulse Rate [ Apical] Pulse Rate [ Left Posterior Tibial] Pulse Rate [ Left Radial] Pulse Rate [ Right Radial] Respiratory 21 20 20 Rate Blood Pressure 134/60 137/65 92/49 O2 Sat by Pulse Oximetry 12/21/17 12/21/17 12/21/17 05:40 05:50 06:00 Temperature Pulse Rate 110 H 111 H 113 H Pulse Rate [ Apical] Pulse Rate [ Left Posterior Tibial] Pulse Rate [ Left Radial] Pulse Rate [ Right Radial] Respiratory 21 24 24 Rate Blood Pressure 92/49 110/58 132/64 O2 Sat by Pulse Oximetry 12/21/17 12/21/17 12/21/17 06:10 06:20 06:30 Temperature Pulse Rate 116 H 116 H 116 H Pulse Rate [ Apical] Pulse Rate [ Left Posterior Tibial] Pulse Rate [ Left Radial] Pulse Rate [ Right Radial] Respiratory 24 24 25 H Rate Blood Pressure 132/64 152/70 156/77 O2 Sat by Pulse Oximetry 12/21/17 12/21/17 12/21/17 06:40 06:50 07:00 Temperature Pulse Rate 116 H 116 H 116 H Pulse Rate [ Apical] Pulse Rate [ Left Posterior Tibial] Pulse Rate [ Left Radial] Pulse Rate [ Right Radial] Respiratory 25 H 23 25 H Rate Blood Pressure 156/77 171/72 133/76 O2 Sat by Pulse Oximetry 12/21/17 12/21/17 12/21/17 07:10 07:20 07:30 Temperature Pulse Rate 115 H 114 H 113 H Pulse Rate [ Apical] Pulse Rate [ Left Posterior Tibial] Pulse Rate [ Left Radial] Pulse Rate [ Right Radial] Respiratory 22 22 22 Rate Blood Pressure 133/76 120/58 138/57 O2 Sat by Pulse Oximetry General appearance: Present: other (unresponsive) - EENT Eyes: irregular pupil (puplis fixed and dilated) - Neck Neck: supple - Respiratory Respiratory: bilateral: other (coarse) Extremity abnormal: other (right leg cyanotic with absent doppler signals in pedal location, left leg normal color but absent doppler signals at pedal arteries) - Labs CBC & Chem 7: 12/20/17 23:55 12/20/17 19:40 Labs: Abnormal lab results 12/20/17 12/20/17 12/20/17 Range/Units 18:11 18:32 19:21 WBC (4.5-11.0) K/mm3 RBC (3.65-5.03) M/mm3 Hgb (11.8-15.2) gm/dl Hct (35.5-45.6) % MCV (84-94) fl MCHC (32-34) % RDW (13.2-15.2) % Plt Count (140-440) K/mm3 Seg Neuts % (Manual) (40.0-70.0) % Lymphocytes % (Manual) (13.4-35.0) % Nucleated RBC % (0.0-0.9) % Seg Neutrophils # Man (1.8-7.7) K/mm3 Monocytes # (Manual) (0.0-0.8) K/mm3 PT (12.2-14.9) Sec. INR (0.87-1.13) APTT (24.2-36.6) Sec. POC ABG pH 7.174 L (7.35-7.45) POC ABG pCO2 16.6 L (35-45) POC ABG pO2 383 H (80-105) Chloride (98-107) mmol/L Carbon Dioxide (22-30) mmol/L BUN (9-20) mg/dL Creatinine (0.8-1.5) mg/dL Glucose (75-100) mg/dL POC Glucose 247 H (70-105) Calcium (8.4-10.2) mg/dL Phosphorus (2.5-4.5) mg/dL Magnesium (1.7-2.3) mg/dL Total Bilirubin (0.1-1.2) mg/dL AST (5-40) units/L Total Creatine Kinase (55-170) units/L Troponin T 0.150 H* (0.00-0.029) ng/mL Total Protein (6.3-8.2) g/dL Albumin (3.9-5) g/dL Triglycerides (2-149) mg/dL HDL Cholesterol (40-59) mg/dL 18 18 12/20/17 Range/Units 19:40 19:40 20:58 WBC 33.1 H (4.5-11.0) K/mm3 RBC 3.46 L (3.65-5.03) M/mm3 Hgb 10.4 L (11.8-15.2) gm/dl Hct 32.7 L D (35.5-45.6) % MCV 95 H (84-94) fl MCHC (32-34) % RDW 16.3 H (13.2-15.2) % Plt Count 26 L (140-440) K/mm3 Seg Neuts % (Manual) 80.5 H (40.0-70.0) % Lymphocytes % (Manual) 7.0 L (13.4-35.0) % Nucleated RBC % (0.0-0.9) % Seg Neutrophils # Man 26.6 H (1.8-7.7) K/mm3 Monocytes # (Manual) 2.0 H (0.0-0.8) K/mm3 PT (12.2-14.9) Sec. INR (0.87-1.13) APTT (24.2-36.6) Sec. POC ABG pH 6.992 L (7.35-7.45) POC ABG pCO2 (35-45) POC ABG pO2 407 H (80-105) Chloride 93.7 L (98-107) mmol/L Carbon Dioxide 9 L* D (22-30) mmol/L BUN 25 H (9-20) mg/dL Creatinine 2.1 H D (0.8-1.5) mg/dL Glucose 226 H (75-100) mg/dL POC Glucose (70-105) Calcium 7.6 L (8.4-10.2) mg/dL Phosphorus 7.50 H (2.5-4.5) mg/dL Magnesium 3.40 H (1.7-2.3) mg/dL Total Bilirubin 1.90 H (0.1-1.2) mg/dL AST 91 H (5-40) units/L Total Creatine Kinase 635 H (55-170) units/L Troponin T 0.181 H* D (0.00-0.029) ng/mL Total Protein 5.5 L (6.3-8.2) g/dL Albumin 2.8 L (3.9-5) g/dL Triglycerides 254 H (2-149) mg/dL HDL Cholesterol 23 L (40-59) mg/dL 12/20/17 12/21/17 12/21/17 Range/Units 23:55 00:00 00:17 WBC 50.5 H* (4.5-11.0) K/mm3 RBC 2.78 L (3.65-5.03) M/mm3 Hgb 8.3 L (11.8-15.2) gm/dl Hct 26.9 L (35.5-45.6) % MCV 97 H (84-94) fl MCHC 31 L (32-34) % RDW 16.7 H (13.2-15.2) % Plt Count 89 L D (140-440) K/mm3 Seg Neuts % (Manual) 76.0 H (40.0-70.0) % Lymphocytes % (Manual) 8.5 L (13.4-35.0) % Nucleated RBC % 3.5 H (0.0-0.9) % Seg Neutrophils # Man 38.4 H (1.8-7.7) K/mm3 Monocytes # (Manual) 1.0 H (0.0-0.8) K/mm3 PT (12.2-14.9) Sec. INR (0.87-1.13) APTT (24.2-36.6) Sec. POC ABG pH (7.35-7.45) POC ABG pCO2 (35-45) POC ABG pO2 (80-105) Chloride (98-107) mmol/L Carbon Dioxide (22-30) mmol/L BUN (9-20) mg/dL Creatinine (0.8-1.5) mg/dL Glucose (75-100) mg/dL POC Glucose 120 H (70-105) Calcium (8.4-10.2) mg/dL Phosphorus (2.5-4.5) mg/dL Magnesium (1.7-2.3) mg/dL Total Bilirubin (0.1-1.2) mg/dL AST (5-40) units/L Total Creatine Kinase (55-170) units/L Troponin T 0.321 H* D (0.00-0.029) ng/mL Total Protein (6.3-8.2) g/dL Albumin (3.9-5) g/dL Triglycerides (2-149) mg/dL HDL Cholesterol (40-59) mg/dL 02/18/18 Range/Units 04:09 WBC (4.5-11.0) K/mm3 RBC (3.65-5.03) M/mm3 Hgb (11.8-15.2) gm/dl Hct (35.5-45.6) % MCV (84-94) fl MCHC (32-34) % RDW (13.2-15.2) % Plt Count (140-440) K/mm3 Seg Neuts % (Manual) (40.0-70.0) % Lymphocytes % (Manual) (13.4-35.0) % Nucleated RBC % (0.0-0.9) % Seg Neutrophils # Man (1.8-7.7) K/mm3 Monocytes # (Manual) (0.0-0.8) K/mm3 PT 120.0 H (12.2-14.9) Sec. INR > 17.67 H* (0.87-1.13) APTT 114.3 H* (24.2-36.6) Sec. POC ABG pH (7.35-7.45) POC ABG pCO2 (35-45) POC ABG pO2 (80-105) Chloride (98-107) mmol/L Carbon Dioxide (22-30) mmol/L BUN (9-20) mg/dL Creatinine (0.8-1.5) mg/dL Glucose (75-100) mg/dL POC Glucose (70-105) Calcium (8.4-10.2) mg/dL Phosphorus (2.5-4.5) mg/dL Magnesium (1.7-2.3) mg/dL Total Bilirubin (0.1-1.2) mg/dL AST (5-40) units/L Total Creatine Kinase (55-170) units/L Troponin T (0.00-0.029) ng/mL Total Protein (6.3-8.2) g/dL Albumin (3.9-5) g/dL Triglycerides (2-149) mg/dL HDL Cholesterol (40-59) mg/dL
[2017-12-21] MEDS ORDERED: NACL 0.9% 500 ML 500 ML IV ONE ×3 (08:21→16:00)
[2017-12-21 08:29] LABS: Mean Corpuscular HGB Conc 28 % (32-34); Mean Corpuscular Hemoglobin 29 pg (28-32); Mean Corpuscular Volume 103 fl (84-94); Red Cell Distribution Width 18.1 % (13.2-15.2)
[2017-12-21 08:37] LABS: Hematocrit 21.7 % (35.5-45.6)
[2017-12-21 09:00] LABS: INR > 17.67 (0.87-1.13)
[2017-12-21] MEDS: SODIUM BICARBONATE 150 MEQ in D5W 1,000 ML IV SCH ×2 (09:11→13:28)
--- NOTE | 2017-12-21 09:17 | Progress Note ---
Assessment and Plan Assessment and plan: Patient is a 77 yo man from the [place] (he [place] a wheelchair at the airport per report) with c/o right thigh pain and swelling after fall on 12/11/17 in his Hotel room, he stated that he slipped while exiting bathroom at hotel. He was able to go to sleep but upon waking he was unable to place any weight onto right leg, so the came to [facility] ED where xrays revealed a comminuted fracture mid to distal third femur. Admission CT scan chest revealed pulmonary emboli... /Acute right-sided pulmonary emboli d/w Dr. Mejia again today for clarification==> likely fat embolism per Dr. Mejia and patient doesn't need 6 month a/c, patient doesn't need anticoagulation for this PE per Dr. Mejia, pt just needs postop DVt prophylaxis /Acute blood loss anemia s/p 1unit prbc ordered FOBT, but pt is not cooperative repeat cbc in am /Right femur fracture after mechanical fall s/p ORIF on 12/16/[address] Jack Box /Rhabdomyolysis, traumatic, resolved - monitor CK levels /Hypokalemia replete and recheck /DVT Px hold for bleeding 12/20/17: Patient was admitted on 12/12/17 after fall outside the hospital. When I initially saw patient on 12/16/17, he was very guarded and vague about any details regarding his visit. He wouldn't divulge why he came here or where he was at the time of the fall. I believed he was just concerned about surgery in the afternoon. The heparin drip was running. He did well after surgery except he was reluctant to work with physical therapy and for this reason, I did not discharge him to [facility] because he couldn't adequately stand to be stay in the hotel room by himself. I ordered Eliquis 12/17/17 for both dvt prophylaxis and right lung Pulmonary embolism, he did not want Eliquis due to cost and his insurance was in the [place]. D/w Dr. Mejia, who believed that patient only needed anticoagulant for DVT prophylaxis, so I started Warfarin for DVT prophylaxis on 12/18/17. He received heparin IV drip from admission on 12/12/17 until surgery on . Then on 12/17/17, he received Eliquis. Then he received the Warfarin on . Patient did well until 12/20/17 until around 1630, patient developed severe pains in the right leg and heart rate elevated up to 130s. I ordered ekg , troponin, remote telemetry. I called Dr. Box and updated him. I spoke with personal lines account executive Vascular surgeon, Dr. Nash, who advised that I get a CTA right leg of aorta with runoff, which I ordered around 1650. Unfortunately, nursing staff has not been able to get the appropriate peripheral IV line to obtain CTA of the leg. 1st Code Med was called, my partner Dr. Wise was near by and examined the leg and it was cold to touch. I updated Dr. Nash and he will see. I have asked ED physician to place an EJ for the CTA of the right leg. I updated Dr. Box again and Dr. Nash and called Dr. Mejia, who advised that I get an ABG, he ok'd the move to the ICU. 2nd Code MET called as "patient was in respiratory distress,hypotensive and tachycardic. When I evaluated the patient ,Lower extremity swollen ,red, cold and clammy. Vascular surgeon Max Grewal at the bed side Patient was hypotensive and diaphoretic. Transferred the patient to ICU Stat labs,EKG ordered,Pressors to be started D/W drying machine operator the new events and ABG findings. He discussed with respiratory Patient is critically ill. Full code status. Attending Physician was informed by the nurse. Plan of care d/w ICU charge nurse, Signed off to covering Hospitalist . Unable to contact the family." per Dr. Monique per Dr. Nash: "I was called late this afternoon to evaluate patient for a cold right lower extremity. I requested that a CTA of the lower extremities be done prior to arrival since US was not available. I was later informed that the CTA could not be done because there was no adequate IV access. I arrived at the hospital about 7pm. Patient was being attended to by the COMMISSARY OFFICER for labored respirations. Patient was immediately transferred to the ICU. In the ICU, resuscitation efforts continued. ABG was drawn by me from the right brachial artery under US guidance becauses pulses were weak. Patient was awake but not responsive. I intended to place an arm line, but interrogation of the superficial veins revealed that the upper arm cephalic and basilic veins were thrombosed. The thombi appeared to me to be fresh although some areas of thicker density were noted. The GSVs were thrombosed bilaterally. The righ jugular vein was flat. Since the patient had an INR of greater than 4, I wanted to avoid a central line superiorly. I placed a left CFV triple lumen with US guidance under sterile conditions. At this poitn, his respirations became shallow. He became bradycardic. He qwas emergently intubated. I attempted to place an art line, but he became pulseless. A code was called and he was eventually resuscitated. An art line was placed with US in the right radial artery. On exam, both LEs are difficult to examine with a doppler because of hypotension. Patient is now on maximum levophed gtt. Duplex of the proximal arterial structures seems to show they are pqatent and pulsatile. The distal RLE is blue and cool. Capillary refill is slow at best. Patient is on Coumadin with INR of 4.5. He was on a heparin gtt earlier this week. Platelet count was 90 when last checked. Plt count is pending right now. He was dx with PE a week ago based on CTA, They were snall emboli in the peripheral right pulmonary circulation. Patient is from [facility]. He had fallen in the shower of a hotel a week ago. He fractured his right femur. Only listed allergy is to latex. Overall, patient is in extremis at the moment. It is not clear what issue is affecting his leg, be it venous or arterial pathology. He had a venous duplex of the legs earlier this week that showed no DVT. Also, that study did not show thrombus in the GSVs which is clearly visible now. Recommend continuing resuscitation. Patient is in no condition for intervention at the moment. If situation improves, further diagnostic testing will be obtained." 2nd Morena castro called Piyush Smith: "MORENA CASTRO called On my arrival Dr. Gutierrez ER physician present As per report patient had bradycardia later went into PEA, started CPR and received epinephrine return of pulse. After few minutes patient coded again. Similar chain of events with bradycardia followed by PEA. Started CPR and multiple rounds of epinephrine given ATROPINE given because of bradycardia. Patient also received calcium. Mag and bicarbonate. Patient already on bicarbonate drip. Patient hypotensive despite being maxed out on 3 pressors. And started on epinephrine drip. Multiple attempts were made by myself as well as the staff to reach his long distance but no answer. Left voice mail for the to call us back. Discussed with the patient's vascular surgeon Dr. Nash. Platelet count is 26K. INR is greater than 17. He was exposed to heparin earlier. He was started on warfarin as well. 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 He is extremely coagulopathic and critical and unstable for any imaging. Extremely critical and extremely poor prognosis. Pupils are fixed and dilated. Left upper extremity mottled right lower extremity cold pulseless cyanotic and mottled. Patient is also generally pale and cyanotic. Possible considerations are massive PE versus bleeding, patient to critical and unstable for further investigations. Also he is already anticoagulated with extremely high INR." 12/21/17: Yesterday, It appears his clinical status deteriorated rather quickly. It appears he thrombosed his vessels (maybe the reason nursing couldn't establish IV line) believed to be from HIT vs undiagnosis hypercoaguable condition, had 2 Code MET and 2 Code Blue (first 1757 and second 2340pm) and now maxed out on 3 Vasopressors drip, hypothermic, comatose on mechanical ventilator w/o sedation per Dr. 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 Second dose given this morning. Switch to argatroban when coags are more reasonable. 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 Patient is too ill for any intervention right now. (3) Unresponsive Current Visit: Yes Status: Acute Plan to address problem: Unknown prognosis." I attempt to call in Pauline @ 10:00am EST, no answer. Critical condition, poor prognosis CCT 45 minutes History Interval history: Pt seen and examined, follow up Right leg pains, s/p surgery. Yesterday, it appears his clinical status deteriorated rather quickly. It appears he thrombosed his vessels believed to be from HIT, had 2 code blues and now maxed out on 3 Vasopressors drip, hypothermic, comatose on mechanical ventilator w/o sedation. Hospitalist Physical - Physical exam Narrative exam: GEN: critically ill, comatose HEENT: ETT in place, eyes fixed and dilated CVS/HEART: regular tachycardic CHEST/LUNGS: Symmetrical chest expansion bilaterally GI/Abdomen: soft, +good bowel sounds, EXT/Skin: oozing blood from right hip wound, petechiae throughout his body, right leg gangrene MSK: no spontaneous movement Neuro: not following commands Psych: calm and withdrawn - Constitutional Vitals: Temp Pulse Resp BP Pulse Ox 95.3 F L 113 H 22 138/57 86 12/21/17 04:00 12/21/17 07:30 12/21/17 07:30 12/21/17 07:30 12/21/17 05:00 General appearance: Present: other (unresponsive) Results - Labs CBC & Chem 7: 12/21/17 07:55 12/21/17 07:55 Labs: Laboratory Last Values WBC 57.3 K/mm3 (4.5-11.0) H* 12/21/17 07:55 RBC 2.10 M/mm3 (3.65-5.03) L 12/21/17 07:55 Hgb 6.0 gm/dl (11.8-15.2) L 12/21/17 07:55 Hct 21.7 % (35.5-45.6) L 12/21/17 07:55 MCV 103 fl (84-94) H 12/21/17 07:55 MCH 29 pg (28-32) 12/21/17 07:55 MCHC 28 % (32-34) L 12/21/17 07:55 RDW 18.1 % (13.2-15.2) H 12/21/17 07:55 Plt Count 89 K/mm3 (140-440) L D 12/20/17 23:55 Lymph % (Auto) 7.1 % (13.4-35.0) L 12/15/17 06:47 [place] % (Auto) 11.9 % (0.0-7.3) H 12/15/17 06:47 Eos % (Auto) 0.0 % (0.0-4.3) 12/15/17 06:47 Baso % (Auto) 0.2 % (0.0-1.8) 12/15/17 06:47 Lymph # Licensed Sales Producer 12/20/17 23:55 [place] # 0.5 K/mm3 (0.0-0.8) 12/15/17 06:47 Eos # 0.0 K/mm3 (0.0-0.4) 12/15/17 06:47 Baso # 0.0 K/mm3 (0.0-0.1) 12/15/17 06:47 Add Manual Diff Complete 12/20/17 23:55 Total Counted 200 12/20/17 23:55 Seg Neutrophils % 80.8 % (40.0-70.0) H 12/15/17 06:47 Seg Neuts % (Manual) 76.0 % (40.0-70.0) H 12/20/17 23:55 Band Neutrophils % 7.0 % 12/20/17 23:55 Lymphocytes % (Manual) 8.5 % (13.4-35.0) L 12/20/17 23:55 Reactive Lymphs % (Man) 0 % 12/20/17 23:55 Monocytes % (Manual) 2.0 % (0.0-7.3) 12/20/17 23:55 Eosinophils % (Manual) 0 % (0.0-4.3) 12/20/17 23:55 Basophils % (Manual) 0 % (0.0-1.8) 12/20/17 23:55 Metamyelocytes % 5.0 % 12/20/17 23:55 Myelocytes % 1.5 % 12/20/17 23:55 Promyelocytes % 0 % 12/20/17 23:55 Blast Cells % 0 % 12/20/17 23:55 Nucleated RBC % 3.5 % (0.0-0.9) H 12/20/17 23:55 Seg Neutrophils # 3.4 K/mm3 (1.8-7.7) 12/15/17 06:47 Seg Neutrophils # Man 38.4 K/mm3 (1.8-7.7) H 12/20/17 23:55 Band Neutrophils # 3.5 K/mm3 12/20/17 23:55 Lymphocytes # (Manual) 4.3 K/mm3 (1.2-5.4) 12/20/17 23:55 Abs React Lymphs (Man) 0.0 K/mm3 12/20/17 23:55 Monocytes # (Manual) 1.0 K/mm3 (0.0-0.8) H 12/20/17 23:55 Eosinophils # (Manual) 0.0 K/mm3 (0.0-0.4) 12/20/17 23:55 Basophils # (Manual) 0.0 K/mm3 (0.0-0.1) 12/20/17 23:55 Metamyelocytes # 2.5 K/mm3 12/20/17 23:55 Myelocytes # 0.8 K/mm3 12/20/17 23:55 Promyelocytes # 0.0 K/mm3 12/20/17 23:55 Blast Cells # 0.0 K/mm3 12/20/17 23:55 WBC Morphology Not Reportable 12/20/17 23:55 Hypersegmented Neuts Not Reportable 12/20/17 23:55 Hyposegmented Neuts Not Reportable 12/20/17 23:55 Hypogranular Neuts Not Reportable 12/20/17 23:55 Smudge Cells Not Reportable 12/20/17 23:55 Toxic Granulation Not Reportable 12/20/17 23:55 Toxic Vacuolation Not Reportable 12/20/17 23:55 Dohle Bodies Not Reportable 12/20/17 23:55 Pelger-Huet Anomaly Not Reportable 12/20/17 23:55 Adalberto Rods Not Reportable 12/20/17 23:55 Platelet Estimate Consistent w auto 12/20/17 23:55 Clumped Platelets Not Reportable 12/20/17 23:55 Plt Clumps, EDTA Not Reportable 12/20/17 23:55 Large Platelets Not Reportable 12/20/17 23:55 Giant Platelets Few 12/20/17 23:55 Platelet Satelliting Not Reportable 12/20/17 23:55 Plt Morphology Comment Not Reportable 12/20/17 23:55 RBC Morphology Not Reportable 12/20/17 23:55 Dimorphic RBCs Not Reportable 12/20/17 23:55 Polychromasia Few 12/20/17 23:55 Hypochromasia Few 12/20/17 23:55 Poikilocytosis Not Reportable 12/20/17 23:55 Anisocytosis 2+ 12/20/17 23:55 Microcytosis Not Reportable 12/20/17 23:55 Macrocytosis Not Reportable 12/20/17 23:55 Spherocytes Not Reportable 12/20/17 23:55 Pappenheimer Bodies Not Reportable 12/20/17 23:55 Sickle Cells Not Reportable 12/20/17 23:55 Target Cells Not Reportable 12/20/17 23:55 Tear Drop Cells Few 12/20/17 23:55 Ovalocytes Few 12/20/17 23:55 Helmet Cells Not Reportable 12/20/17 23:55 [place] Bodies Not Reportable 12/20/17 23:55 Cuttyhunk Rings Not Reportable 12/20/17 23:55 Adriana Cells 2+ 12/20/17 23:55 Bite Cells Not Reportable 12/20/17 23:55 Crenated Cell Not Reportable 12/20/17 23:55 Elliptocytes Few 12/20/17 23:55 Acanthocytes (Spur) Not Reportable 12/20/17 23:55 Rouleaux Not Reportable 12/20/17 23:55 Hemoglobin C Crystals Not Reportable 12/20/17 23:55 Schistocytes Few 12/20/17 23:55 Malaria parasites Not Reportable 12/20/17 23:55 Thanh Bodies Not Reportable 12/20/17 23:55 Hem Pathologist Commnt No 12/20/17 23:55 PT 120.0 Sec. (12.2-14.9) H 12/21/17 07:55 INR > 17.67 (0.87-1.13) H* 12/21/17 07:55 APTT 114.3 Sec. (24.2-36.6) H* 12/21/17 04:09 Heparin Anti-Xa Level 0.69 U.I./ml (0.3-0.7) 12/15/17 20:48 POC ABG pH 6.889 (7.35-7.45) L 12/21/17 08:06 POC ABG pCO2 22.3 (35-45) L 12/21/17 08:06 POC ABG pO2 198 (80-105) H 12/21/17 08:06 POC ABG HCO3 4.3 12/21/17 08:06 POC ABG Total CO2 < 5 12/21/17 08:06 POC ABG O2 Sat 99 12/21/17 08:06 POC ABG Base Excess -29 12/21/17 08:06 FiO2 70 % 12/21/17 08:06 Sodium 147 mmol/L (137-145) H 12/21/17 07:55 Potassium 4.8 mmol/L (3.6-5.0) D 12/20/17 19:40 Chloride 96.1 mmol/L (98-107) L 12/21/17 07:55 Carbon Dioxide 9 mmol/L (22-30) L* D 12/20/17 19:40 Anion Gap 42 mmol/L 12/20/17 19:40 BUN 27 mg/dL (9-20) H 12/21/17 07:55 Creatinine 2.7 mg/dL (0.8-1.5) H 12/21/17 07:55 Estimated GFR 23 ml/min 12/21/17 07:55 BUN/Creatinine Ratio 10 % 12/21/17 07:55 Glucose 72 mg/dL (75-100) L 12/21/17 07:55 POC Glucose 120 (70-105) H 12/21/17 00:17 Calcium 7.0 mg/dL (8.4-10.2) L 12/21/17 07:55 Phosphorus 7.50 mg/dL (2.5-4.5) H 12/20/17 19:40 Magnesium 3.40 mg/dL (1.7-2.3) H 12/20/17 19:40 Total Bilirubin 1.90 mg/dL (0.1-1.2) H 12/20/17 19:40 AST 91 units/L (5-40) H 12/20/17 19:40 ALT 43 units/L (7-56) 12/20/17 19:40 Alkaline Phosphatase 93 units/L (35-129) 12/20/17 19:40 Total Creatine Kinase 635 units/L (55-170) H 12/20/17 19:40 CK-MB (CK-2) 3.0 ng/mL (0.0-4.0) 12/20/17 19:40 CK-MB (CK-2) Rel Index 0.4 (0-4) 12/20/17 19:40 Troponin T 0.321 ng/mL (0.00-0.029) H* D 12/21/17 00:00 Total Protein 5.5 g/dL (6.3-8.2) L 12/20/17 19:40 Albumin 2.8 g/dL (3.9-5) L 12/20/17 19:40 Albumin/Globulin Ratio 1.0 % 12/20/17 19:40 Triglycerides 254 mg/dL (2-149) H 12/20/17 19:40 Cholesterol 136 mg/dL (50-199) 12/20/17 19:40 LDL Cholesterol Direct 63 mg/dL (50-130) 12/20/17 19:40 HDL Cholesterol 23 mg/dL (40-59) L 12/20/17 19:40 Cholesterol/HDL Ratio 5.91 % 12/20/17 19:40 Blood Type O NEGATIVE 12/21/17 00:10 Antibody Screen Negative 12/21/17 00:10 Crossmatch See Detail 12/21/17 00:10
[2017-12-21 10:15] LABS: Platelet Count 77 K/mm3 (140-440)
[2017-12-21] MEDS ORDERED: CALCIUM CHLORIDE IV ONE (10:31)
[2017-12-21] MEDS ORDERED: CALCIUM CHLORIDE 1,000 MG in NACL 0.9% 100 ML IV NR (11:00)
[2017-12-21] MEDS ORDERED: D50W (25GM) Syringe IV NR (11:00)
--- NOTE | 2017-12-21 13:37 | Consultation ---
History of Present Illness Consult date: 12/21/17 Requesting physician: JITENDRA PHAM Reason for consult: other (hypotension, tachycardia, anemia and tachypnea) History of present illness: 77 y/o male, whom I originally saw earlier in the week as a consult for stopping heparin to peform surgery for hip fracture now intubated, on no sedation in the ICU on 3 pressors and critically ill. No family at bedside so all history from chart and staff. Yesterday, developed acute pain in right leg. Became mottled diffusely and tachypnic. No chest pain documented, but tachypnic. Due to hypotension and overall instability transferred to ICU. Placed on bipap but later had cardiac arrest. Per chart PEA. Intubated and resuscitated. Currently not sedated. Severe metabolic acidosis with highly elevated lactic acidosis. Vascular had been consulted and when using ultrasound sound several clots throughout lower ext. All new as he had a DVT earlier in hospital stay that was negative. Past History Past Medical History: other (elevated PSA, denied any history of cancer or blood clot in the past on first consultation) Past Surgical History: Other (right hip repair) Social history: other ( from [place], here for some function) Medications and Allergies Allergies Allergy/AdvReac Type Severity Reaction Status Date / Time latex AdvReac Itching Verified 12/16/17 12:54 Home Medications Medication Instructions Recorded Confirmed Last Taken Type Betahistine 3 mg PO DAILY 12/19/17 12/19/17 Unknown History Active Meds: Active Medications Acetaminophen (Tylenol) 650 mg PO Q4H PRN PRN Reason: Pain MILD(1-3)/Fever >100.5/DELGADO Acetaminophen/Hydrocodone Bitart ([place] 10/325) 1 each PO Q4H PRN PRN Reason: Pain, Moderate (4-6) Last Admin: 12/20/17 02:40 Dose: 1 each Fentanyl Citrate (Fentanyl Drip Premix) 2,000 mcg in 100 mls @ 4 mls/hr IV TITR SHIRA; 1 MCG/KG/HR PRN Reason: Protocol Amiodarone HCl 900 mg/ (Dextrose) 500 mls @ 33.33 mls/hr IV DIRECT SHIRA; 1 MG /MIN PRN Reason: Protocol Dopamine HCl/Dextrose (Intropin Drip 800 Mg/D5w 250 Ml) 800 mg in 250 mls @ 3 mls/hr IV TITR SHIRA; 2 MCG/KG/MIN PRN Reason: Protocol Last Titration: 12/21/17 07:00 Dose: 0 mcg/kg/min, 0 mls/hr Sodium Chloride (Nacl 0.9% 1000 Ml) 1,000 mls @ 200 mls/hr IV DIRECT SHIRA Last Admin: 12/21/17 00:08 Dose: 200 mls/hr Vasopressin 20 unit/ Sodium (Chloride) 101 mls @ 9.09 mls/hr IV TITR SHIRA; 0.03 UNITS/MIN PRN Reason: Protocol Last Admin: 12/21/17 10:08 Dose: 0.03 units/min, 9.09 mls/hr Epinephrine 8 mg/ Sodium (Chloride) 250 mls @ 3.75 mls/hr IV TITR SHIRA; 2 MCG/ MIN PRN Reason: Protocol Last Titration: 12/21/17 10:09 Dose: 1 mcg/min, 1.87 mls/hr Norepinephrine 8 mg/ Sodium (Chloride) 250 mls @ 3.75 mls/hr IV TITR SHIRA; 2 MCG /MIN PRN Reason: Protocol Last Titration: 12/21/17 11:49 Dose: 2 mcg/min, 3.75 mls/hr Sodium Bicarbonate 150 meq/ (Dextrose) 1,150 mls @ 200 mls/hr IV DIRECT SHIRA Last Admin: 12/21/17 13:28 Dose: 200 mls/hr Metronidazole (Flagyl 500 Mg/100 Ml) 500 mg in 100 mls @ 100 mls/hr IV Q8HR SHIRA Magnesium Hydroxide (Milk Of Magnesia) 30 ml PO Q4H PRN PRN Reason: Constipation Morphine Sulfate (Morphine) 2 mg IV Q4H PRN PRN Reason: Pain, Moderate (4-6) Last Admin: 12/20/17 15:02 Dose: 2 mg Ondansetron HCl (Zofran) 4 mg IV Q4H PRN PRN Reason: N/V unrelieved by Paul Last Admin: 12/13/17 11:34 Dose: 4 mg Review of Systems ROS unobtainable: due to endotracheal tube, due to mental status Physical Examination Vital signs: Vital Signs Pulse Resp Pulse Ox 106 H 19 97 12/12/17 18:27 12/12/17 18:27 12/12/17 18:27 General appearance: comatose Eyes: other (pupils are fixed and dilated) ENT: other (orally intubated) Ascultation: Bilateral: diminished breath sounds Percussion: Bilateral: not dull Cardiovascular: regular rate and rhythm Gastrointestinal: hypoactive bowel sounds Extremities: other (oozing from surgical site at thigh, mottled appearance on limbs) Results - Laboratory Findings CBC and BMP: 12/21/17 07:55 12/21/17 07:55 ABG POC ABG pH 6.889 (7.35-7.45) L 12/21/17 08:06 POC ABG pCO2 22.3 (35-45) L 12/21/17 08:06 POC ABG pO2 198 (80-105) H 12/21/17 08:06 POC ABG HCO3 4.3 12/21/17 08:06 POC ABG Total CO2 < 5 12/21/17 08:06 POC ABG O2 Sat 99 12/21/17 08:06 PT/INR, D-dimer PT 120.0 Sec. (12.2-14.9) H 12/21/17 07:55 INR > 17.67 (0.87-1.13) H* 12/21/17 07:55 Abnormal lab findings: Abnormal Labs 12/12/17 12/12/17 12/12/17 18:50 18:50 19:54 WBC RBC Hgb Hct MCV MCHC RDW Plt Count Lymph % (Auto) 5.4 L [place] % (Auto) 11.4 H Lymph # 0.5 L [place] # 1.0 H Seg Neutrophils % 82.9 H Seg Neuts % (Manual) Lymphocytes % (Manual) Nucleated RBC % Seg Neutrophils # Man Monocytes # (Manual) PT INR APTT Heparin Anti-Xa Level POC ABG pH POC ABG pCO2 POC ABG pO2 Sodium 136 L Potassium Chloride 96.3 L Carbon Dioxide BUN Creatinine Glucose 131 H POC Glucose Lactic Acid Calcium 8.3 L Phosphorus Magnesium Total Bilirubin AST Total Creatine Kinase 1011 H CK-MB (CK-2) 5.0 H Troponin T Total Protein Albumin 3.8 L Triglycerides HDL Cholesterol Crossmatch 12/13/17 12/13/17 12/13/17 06:40 06:40 06:40 WBC RBC Hgb Hct MCV MCHC 35 H RDW 15.4 H Plt Count Lymph % (Auto) 11.6 L [place] % (Auto) 13.1 H Lymph # 0.8 L [place] # 0.9 H Seg Neutrophils % 75.1 H Seg Neuts % (Manual) Lymphocytes % (Manual) Nucleated RBC % Seg Neutrophils # Man Monocytes # (Manual) PT INR APTT Heparin Anti-Xa Level POC ABG pH POC ABG pCO2 POC ABG pO2 Sodium Potassium Chloride Carbon Dioxide BUN Creatinine 0.7 L Glucose 107 H POC Glucose Lactic Acid Calcium 7.9 L Phosphorus Magnesium Total Bilirubin AST Total Creatine Kinase 743 H CK-MB (CK-2) Troponin T Total Protein Albumin Triglycerides HDL Cholesterol Crossmatch 12/14/17 12/15/17 12/15/17 05:52 06:42 06:47 WBC 4.2 L RBC 3.57 L Hgb 11.2 L Hct 33.8 L D 31.8 L MCV MCHC 35 H RDW Plt Count Lymph % (Auto) 7.1 L [place] % (Auto) 11.9 H Lymph # 0.3 L [place] # Seg Neutrophils % 80.8 H Seg Neuts % (Manual) Lymphocytes % (Manual) Nucleated RBC % Seg Neutrophils # Man Monocytes # (Manual) PT INR APTT Heparin Anti-Xa Level 0.23 L POC ABG pH POC ABG pCO2 POC ABG pO2 Sodium Potassium Chloride Carbon Dioxide BUN Creatinine Glucose POC Glucose Lactic Acid Calcium Phosphorus Magnesium Total Bilirubin AST Total Creatine Kinase CK-MB (CK-2) Troponin T Total Protein Albumin Triglycerides HDL Cholesterol Crossmatch 12/15/17 12/16/17 12/16/17 06:47 03:42 03:42 WBC RBC Hgb 10.0 L Hct 28.5 L MCV MCHC RDW Plt Count Lymph % (Auto) [place] % (Auto) Lymph # [place] # Seg Neutrophils % Seg Neuts % (Manual) Lymphocytes % (Manual) Nucleated RBC % Seg Neutrophils # Man Monocytes # (Manual) PT INR APTT Heparin Anti-Xa Level POC ABG pH POC ABG pCO2 POC ABG pO2 Sodium Potassium Chloride 95.9 L Carbon Dioxide BUN Creatinine 0.7 L Glucose 108 H POC Glucose Lactic Acid Calcium 7.1 L Phosphorus Magnesium Total Bilirubin AST Total Creatine Kinase 177 H CK-MB (CK-2) Troponin T Total Protein 5.0 L D Albumin 3.1 L Triglycerides HDL Cholesterol Crossmatch 12/16/17 12/16/17 12/17/17 12:10 19:33 17:46 WBC RBC Hgb 8.3 L 7.0 L Hct 25.3 L 19.9 L* MCV MCHC RDW Plt Count Lymph % (Auto) [place] % (Auto) Lymph # [place] # Seg Neutrophils % Seg Neuts % (Manual) Lymphocytes % (Manual) Nucleated RBC % Seg Neutrophils # Man Monocytes # (Manual) PT INR APTT Heparin Anti-Xa Level POC ABG pH POC ABG pCO2 POC ABG pO2 Sodium Potassium Chloride Carbon Dioxide BUN Creatinine Glucose POC Glucose Lactic Acid Calcium Phosphorus Magnesium Total Bilirubin AST Total Creatine Kinase CK-MB (CK-2) Troponin T Total Protein Albumin Triglycerides HDL Cholesterol Crossmatch See Detail 12/18/17 12/18/17 12/18/17 09:40 09:40 16:56 WBC RBC 3.01 L Hgb 9.3 L Hct 26.7 L D MCV MCHC 35 H RDW Plt Count 96 L Lymph % (Auto) [place] % (Auto) Lymph # [place] # Seg Neutrophils % Seg Neuts % (Manual) Lymphocytes % (Manual) Nucleated RBC % Seg Neutrophils # Man Monocytes # (Manual) PT 15.1 H INR APTT Heparin Anti-Xa Level POC ABG pH POC ABG pCO2 POC ABG pO2 Sodium Potassium 3.1 L Chloride 97.7 L Carbon Dioxide 20 L BUN Creatinine 0.5 L Glucose 103 H POC Glucose Lactic Acid Calcium 7.2 L Phosphorus Magnesium Total Bilirubin AST Total Creatine Kinase CK-MB (CK-2) Troponin T Total Protein Albumin Triglycerides HDL Cholesterol Crossmatch 12/19/17 12/19/17 12/19/17 04:11 04:11 12:55 WBC RBC 2.67 L Hgb 8.2 L Hct 23.8 L MCV MCHC RDW 15.5 H Plt Count Lymph % (Auto) [place] % (Auto) Lymph # [place] # Seg Neutrophils % Seg Neuts % (Manual) Lymphocytes % (Manual) Nucleated RBC % Seg Neutrophils # Man Monocytes # (Manual) PT 21.1 H INR 1.71 H APTT Heparin Anti-Xa Level POC ABG pH POC ABG pCO2 POC ABG pO2 Sodium Potassium 3.5 L Chloride Carbon Dioxide BUN Creatinine 0.5 L Glucose 116 H POC Glucose Lactic Acid Calcium 6.6 L Phosphorus Magnesium Total Bilirubin AST Total Creatine Kinase CK-MB (CK-2) Troponin T Total Protein Albumin Triglycerides HDL Cholesterol Crossmatch 12/20/17 12/20/17 12/20/17 04:23 04:23 04:23 WBC RBC 2.78 L Hgb 8.4 L Hct 23.9 L MCV MCHC 35 H RDW Plt Count 90 L Lymph % (Auto) [place] % (Auto) Lymph # [place] # Seg Neutrophils % Seg Neuts % (Manual) Lymphocytes % (Manual) Nucleated RBC % Seg Neutrophils # Man Monocytes # (Manual) PT 44.5 H INR 4.31 H APTT Heparin Anti-Xa Level POC ABG pH POC ABG pCO2 POC ABG pO2 Sodium Potassium 3.1 L Chloride Carbon Dioxide BUN Creatinine 0.5 L Glucose 129 H POC Glucose Lactic Acid Calcium 7.0 L Phosphorus Magnesium Total Bilirubin AST Total Creatine Kinase CK-MB (CK-2) Troponin T Total Protein Albumin Triglycerides HDL Cholesterol Crossmatch 12/20/17 12/20/17 12/20/17 18:11 18:32 19:21 WBC RBC Hgb Hct MCV MCHC RDW Plt Count Lymph % (Auto) [place] % (Auto) Lymph # [place] # Seg Neutrophils % Seg Neuts % (Manual) Lymphocytes % (Manual) Nucleated RBC % Seg Neutrophils # Man Monocytes # (Manual) PT INR APTT Heparin Anti-Xa Level POC ABG pH 7.174 L POC ABG pCO2 16.6 L POC ABG pO2 383 H Sodium Potassium Chloride Carbon Dioxide BUN Creatinine Glucose POC Glucose 247 H Lactic Acid Calcium Phosphorus Magnesium Total Bilirubin AST Total Creatine Kinase CK-MB (CK-2) Troponin T 0.150 H* Total Protein Albumin Triglycerides HDL Cholesterol Crossmatch 12/20/17 12/20/17 12/20/17 19:40 19:40 20:58 WBC 33.1 H RBC 3.46 L Hgb 10.4 L Hct 32.7 L D MCV 95 H MCHC RDW 16.3 H Plt Count 26 L Lymph % (Auto) [place] % (Auto) Lymph # [place] # Seg Neutrophils % Seg Neuts % (Manual) 80.5 H Lymphocytes % (Manual) 7.0 L Nucleated RBC % Seg Neutrophils # Man 26.6 H Monocytes # (Manual) 2.0 H PT INR APTT Heparin Anti-Xa Level POC ABG pH 6.992 L POC ABG pCO2 POC ABG pO2 407 H Sodium Potassium Chloride 93.7 L Carbon Dioxide 9 L* D BUN 25 H Creatinine 2.1 H D Glucose 226 H POC Glucose Lactic Acid Calcium 7.6 L Phosphorus 7.50 H Magnesium 3.40 H Total Bilirubin 1.90 H AST 91 H Total Creatine Kinase 635 H CK-MB (CK-2) Troponin T 0.181 H* D Total Protein 5.5 L Albumin 2.8 L Triglycerides 254 H HDL Cholesterol 23 L Crossmatch 12/20/17 12/21/17 12/21/17 23:55 00:00 00:10 WBC 50.5 H* RBC 2.78 L Hgb 8.3 L Hct 26.9 L MCV 97 H MCHC 31 L RDW 16.7 H Plt Count 89 L D Lymph % (Auto) [place] % (Auto) Lymph # [place] # Seg Neutrophils % Seg Neuts % (Manual) 76.0 H Lymphocytes % (Manual) 8.5 L Nucleated RBC % 3.5 H Seg Neutrophils # Man 38.4 H Monocytes # (Manual) 1.0 H PT INR APTT Heparin Anti-Xa Level POC ABG pH POC ABG pCO2 POC ABG pO2 Sodium Potassium Chloride Carbon Dioxide BUN Creatinine Glucose POC Glucose Lactic Acid Calcium Phosphorus Magnesium Total Bilirubin AST Total Creatine Kinase CK-MB (CK-2) Troponin T 0.321 H* D Total Protein Albumin Triglycerides HDL Cholesterol Crossmatch See Detail 12/21/17 12/21/17 12/21/17 00:17 04:09 07:55 WBC 57.3 H* RBC 2.10 L Hgb 6.0 L Hct 21.7 L MCV 103 H MCHC 28 L RDW 18.1 H Plt Count 77 L Lymph % (Auto) [place] % (Auto) Lymph # [place] # Seg Neutrophils % Seg Neuts % (Manual) Lymphocytes % (Manual) Nucleated RBC % Seg Neutrophils # Man Monocytes # (Manual) PT 120.0 H INR > 17.67 H* APTT 114.3 H* Heparin Anti-Xa Level POC ABG pH POC ABG pCO2 POC ABG pO2 Sodium Potassium Chloride Carbon Dioxide BUN Creatinine Glucose POC Glucose 120 H Lactic Acid Calcium Phosphorus Magnesium Total Bilirubin AST Total Creatine Kinase CK-MB (CK-2) Troponin T Total Protein Albumin Triglycerides HDL Cholesterol Crossmatch 12/21/17 12/21/17 12/21/17 07:55 07:55 08:06 WBC RBC Hgb Hct MCV MCHC RDW Plt Count Lymph % (Auto) [place] % (Auto) Lymph # [place] # Seg Neutrophils % Seg Neuts % (Manual) Lymphocytes % (Manual) Nucleated RBC % Seg Neutrophils # Man Monocytes # (Manual) PT 120.0 H INR > 17.67 H* APTT Heparin Anti-Xa Level POC ABG pH 6.889 L POC ABG pCO2 22.3 L POC ABG pO2 198 H Sodium 147 H Potassium 6.9 H* D Chloride 96.1 L Carbon Dioxide 5 L* BUN 27 H Creatinine 2.7 H Glucose 72 L POC Glucose Lactic Acid Calcium 7.0 L Phosphorus Magnesium Total Bilirubin AST Total Creatine Kinase CK-MB (CK-2) Troponin T Total Protein Albumin Triglycerides HDL Cholesterol Crossmatch 12/21/17 08:30 WBC RBC Hgb Hct MCV MCHC RDW Plt Count Lymph % (Auto) [place] % (Auto) Lymph # [place] # Seg Neutrophils % Seg Neuts % (Manual) Lymphocytes % (Manual) Nucleated RBC % Seg Neutrophils # Man Monocytes # (Manual) PT INR APTT Heparin Anti-Xa Level POC ABG pH POC ABG pCO2 POC ABG pO2 Sodium Potassium Chloride Carbon Dioxide BUN Creatinine Glucose POC Glucose Lactic Acid 28.10 H* Calcium Phosphorus Magnesium Total Bilirubin AST Total Creatine Kinase CK-MB (CK-2) Troponin T Total Protein Albumin Triglycerides HDL Cholesterol Crossmatch - Diagnostic Findings Chest x-ray: image reviewed (small left pleural effusion, otherwise clear) Assessment and Plan 77 y/o male with PE and hip fracture, now with acute respiratory failure, severe metabolic acidosis with lactic acidemia, cardiovascular collapse, renal failure and metabolic encephalopathy with coaguloapthy. 1. Continue bicarb drip 2. Attempt to correct coags with FFP and vitamin K. Agree with heme eval. The possibility of MIGUE is reasonable. Antibodies sent. At this point, patient is too unstable for a drug like argatroban or lepirudin if this is truly MIGUE. Agree with avoidance of all heparin based products 3. Transfuse to keep HgB greater than 7 or as long as multiple pressor requirement exists 4. Lactic acid is likely secondary to ischemia from clots vs hypotension and poor perfusion 5. Not a candidate for HD and CVVH vs CRRT is not available 6. Correct electrolyte imbalances medically 7. I did add flagyl given large increase in WBC, doubt this is C. Diff but at this point, treating him is not unreasonable 8. Overall prognosis here is extremely poor, given the rapid the decline and the continued instablility with lack of mental response. Several attempts have been made to reach the . Patient most likely will have cardiac arrest again given the above mentioned multi-organ system failures. CCT 31 minutes.
[2017-12-21] MEDS ORDERED: FLAGYL 500 MG/100 ML 500 MG/100 ML BAG IV SCH (14:00)
[2017-12-21 14:03] LABS: Hematocrit 22.3 % (35.5-45.6); Hemoglobin 6.6 gm/dl (11.8-15.2)
[2017-12-21] MEDS ORDERED: ADRENALIN ONE (16:45)
[2017-12-21 17:21] VITALS: BP 81/36
--- NOTE | 2017-12-21 21:29 | Event Note ---
Date: 12/21/17 Code blue was called around 16:50 for asystole and patient was coded according to ACLS protocol but despite the aggressive effort we couldn't salvage him and at 17:04.
--- NOTE | 2017-12-21 21:31 | Death Note ---
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
--- NOTE | 2017-12-22 00:30 | Death Summary ---
Summary - Providers Date of service: 12/22/17 Consults: 12/12/17 19:35 Consult to Physician [CONS] Urgent Consulting Provider: CHANDRIKA BXO Reason For Exam: femur fracture Place consult to:: Dr. Box Notified:: Via his phone Phone number called:: his number Was contact made?: Yes If yes, spoke with:: Dr. Box Time called:: 19:31 Comment:: Dr. Gutierrez (er dr) spoke with Dr. Box 12/16/17 17:25 Physical Therapy Evaluation and Treat [CONS] Routine Comment: Reason For Exam: post op evaluation Weight bearing status?: Partial wt bearing Assistive devices?: Yes If so list: Walker 12/20/17 16:55 Consult to Physician [CONS] Routine Consulting Provider: LUCIO LANDEROS Reason For Exam: right leg ischemia Place consult to:: Lucio Landeros Notified:: yes If yes, spoke with:: doctor to doctor consult Comment:: Dr. Pham stated he would call consult 12/21/17 08:07 Consult to Physician [CONS] Stat Consulting Provider: ORTIZ MEJIA Reason For Exam: respiratory failure Place consult to:: Dr. Mejia Notified:: Dr. Mejia Phone number called:: personal cell phone Was contact made?: Yes If yes, spoke with:: Dr. Mejia Time called:: 08:15 12/21/17 12:08 Consult to Physician [CONS] Routine Consulting Provider: ORTIZ MEJIA Reason For Exam: ICU management Place consult to:: Roberto Notified:: Yes Was contact made?: Yes If yes, spoke with:: Dr. Mejia Comment:: Spoke to in person Attending: JITENDRA PHAM - summary Date of admission: 12/12/17 22:29 Date of : 12/21/17 Significant findings: Patient is a 77 yo man from the [place] ([place] at the airport per report) with c/o right thigh pain and swelling after fall on 12/11/17 in his Hotel room, he stated that he slipped while exiting bathroom at hotel. He was able to go to sleep but upon waking he was unable to place any weight onto right leg, so the came to [facility] ED where xrays revealed a comminuted fracture mid to distal third femur. Admission CT scan chest revealed pulmonary emboli... /Acute right-sided pulmonary emboli d/w Dr. Mejia again today for clarification==> likely fat embolism per Dr. Mejia and patient doesn't need 6 month a/c, patient doesn't need anticoagulation for this PE per Dr. Mejia, pt just needs postop DVt prophylaxis /Acute blood loss anemia s/p 1unit prbc ordered FOBT, but pt is not cooperative repeat cbc in am /Right femur fracture after mechanical fall s/p ORIF on 12/16/[address] Chandrika Box /Rhabdomyolysis, traumatic, resolved - monitor CK levels /Hypokalemia replete and recheck /DVT Px hold for bleeding 12/20/17: Patient was admitted on 12/12/17 after fall outside the hospital. When I initially saw patient on 12/16/17, he was very guarded and vague about any details regarding his visit. He wouldn't divulge why he came here or where he was at the time of the fall. I believed he was just concerned about surgery in the afternoon. The heparin drip was running. He did well after surgery except he was reluctant to work with physical therapy and for this reason, I did not discharge him to Hotel because he couldn't adequately stand to be stay in the hotel room by himself. I ordered Eliquis 12/17/17 for both dvt prophylaxis and right lung Pulmonary embolism, he did not want Eliquis due to cost and his insurance was in the [place]. D/w Dr. Mejia, who believed that patient only needed anticoagulant for DVT prophylaxis, so I started Warfarin for DVT prophylaxis on 12/18/17. He received heparin IV drip from admission on 12/12/17 until surgery on . Then on 12/17/17, he received Eliquis. Then he received the Warfarin on . Patient did well until 12/20/17 until around 1630, patient developed severe pains in the right leg and heart rate elevated up to 130s. I ordered ekg , troponin, remote telemetry. I called Dr. Box and updated him. I spoke with electron tube assembler Vascular surgeon, Dr. Nash, who advised that I get a CTA right leg of aorta with runoff, which I ordered around 1650. Unfortunately, nursing staff has not been able to get the appropriate peripheral IV line to obtain CTA of the leg. 1st Code Med was called, my partner Dr. Wise was near by and examined the leg and it was cold to touch. I updated Dr. Nash and he will see. I have asked ED physician to place an EJ for the CTA of the right leg. I updated Dr. Box again and Dr. Nash and called Dr. Mejia, who advised that I get an ABG, he ok'd the move to the ICU. 2nd Code MET called as "patient was in respiratory distress,hypotensive and tachycardic. When I evaluated the patient ,Lower extremity swollen ,red, cold and clammy. Vascular surgeon Max Grewal at the bed side Patient was hypotensive and diaphoretic. Transferred the patient to ICU Stat labs,EKG ordered,Pressors to be started D/[employer] the new events and ABG findings. He discussed with respiratory Patient is critically ill. Full code status. Attending Physician was informed by the nurse. Plan of care d/w ICU charge nurse, Signed off to covering Hospitalist . Unable to contact the family." per Dr. Monique per Dr. Nash: "I was called late this afternoon to evaluate patient for a cold right lower extremity. I requested that a CTA of the lower extremities be done prior to arrival since US was not available. I was later informed that the CTA could not be done because there was no adequate IV access. I arrived at the hospital about 7pm. Patient was being attended to by the MAINFRAME DEVELOPER for labored respirations. Patient was immediately transferred to the ICU. In the ICU, resuscitation efforts continued. ABG was drawn by me from the right brachial artery under US guidance becauses pulses were weak. Patient was awake but not responsive. I intended to place an arm line, but interrogation of the superficial veins revealed that the upper arm cephalic and basilic veins were thrombosed. The thombi appeared to me to be fresh although some areas of thicker density were noted. The GSVs were thrombosed bilaterally. The righ jugular vein was flat. Since the patient had an INR of greater than 4, I wanted to avoid a central line superiorly. I placed a left CFV triple lumen with US guidance under sterile conditions. At this poitn, his respirations became shallow. He became bradycardic. He qwas emergently intubated. I attempted to place an art line, but he became pulseless. A code was called and he was eventually resuscitated. An art line was placed with US in the right radial artery. On exam, both LEs are difficult to examine with a doppler because of hypotension. Patient is now on maximum levophed gtt. Duplex of the proximal arterial structures seems to show they are pqatent and pulsatile. The distal RLE is blue and cool. Capillary refill is slow at best. Patient is on Coumadin with INR of 4.5. He was on a heparin gtt earlier this week. Platelet count was 90 when last checked. Plt count is pending right now. He was dx with PE a week ago based on CTA, They were snall emboli in the peripheral right pulmonary circulation. Patient is from [facility]. He had fallen in the shower of a hotel a week ago. He fractured his right femur. Only listed allergy is to latex. Overall, patient is in extremis at the moment. It is not clear what issue is affecting his leg, be it venous or arterial pathology. He had a venous duplex of the legs earlier this week that showed no DVT. Also, that study did not show thrombus in the GSVs which is clearly visible now. Recommend continuing resuscitation. Patient is in no condition for intervention at the moment. If situation improves, further diagnostic testing will be obtained." 2nd Morena castro called Minh Smithist: "MORENA CASTRO called On my arrival Dr. Gutierrez ER physician present As per report patient had bradycardia later went into PEA, started CPR and received epinephrine return of pulse. After few minutes patient coded again. Similar chain of events with bradycardia followed by PEA. Started CPR and multiple rounds of epinephrine given ATROPINE given because of bradycardia. Patient also received calcium. Mag and bicarbonate. Patient already on bicarbonate drip. Patient hypotensive despite being maxed out on 3 pressors. And started on epinephrine drip. Multiple attempts were made by myself as well as the staff to reach his long distance but no answer. Left voice mail for the to call us back. Discussed with the patient's vascular surgeon Dr. Nash. Platelet count is 26K. INR is greater than 17. He was exposed to heparin earlier. He was started on warfarin as well. 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 He is extremely coagulopathic and critical and unstable for any imaging. Extremely critical and extremely poor prognosis. Pupils are fixed and dilated. Left upper extremity mottled right lower extremity cold pulseless cyanotic and mottled. Patient is also generally pale and cyanotic. Possible considerations are massive PE versus bleeding, patient to critical and unstable for further investigations. Also he is already anticoagulated with extremely high INR." 12/21/17: Yesterday, It appears his clinical status deteriorated rather quickly. It appears he thrombosed his vessels (maybe the reason nursing couldn't establish IV line) believed to be from HIT vs undiagnosis hypercoaguable condition, had 2 Code MET and 2 Code Blue (first 1757 and second 2340pm) and now maxed out on 3 Vasopressors drip, hypothermic, comatose on mechanical ventilator w/o sedation per Dr. 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 Second dose given this morning. Switch to argatroban when coags are more reasonable. 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 Patient is too ill for any intervention right now. (3) Unresponsive Current Visit: Yes Status: Acute Plan to address problem: Unknown prognosis." I attempt to call in [place] @ 10:00am EST, no answer. Patient 12/21/2017 at 1704 Suspected cause of Heparin Induced Thrombocytopenia
[2017-12-23 17:46] LABS: Heparin-Induced Platelet Antib Positive (Negative); Unfractionated Heparin POSITIVE (Negative)
== END 2017-12-21 18:57 | disposition expired | DRG 956 ==
LOC: ED 18:12 → 4A 22:29 → 3B-SURG 12-16 18:21 → CC1 12-20 19:19
PROVIDERS: ADMIT Internal Medicine; ATTEND Internal Medicine
PROC: 0QS804Z Reposition Right Femoral Shaft with Internal Fixation Device, Open Approach (ICD-10-PCS; principal; 2017-12-16)
PROC: 30233N1 Transfusion of Nonautologous Red Blood Cells into Peripheral Vein, Percutaneous Approach (ICD-10-PCS; 2017-12-18)
PROC: 4A033R1 Measurement of Arterial Saturation, Peripheral, Percutaneous Approach (ICD-10-PCS; 2017-12-20)
PROC: 5A1935Z Respiratory Ventilation, Less than 24 Consecutive Hours (ICD-10-PCS; 2017-12-20)
PROC: 0BH17EZ Insertion of Endotracheal Airway into Trachea, Via Natural or Artificial Opening (ICD-10-PCS; 2017-12-20)
PROC: 30233L1 Transfusion of Nonautologous Fresh Plasma into Peripheral Vein, Percutaneous Approach (ICD-10-PCS; 2017-12-21)
PROC: 30233K1 Transfusion of Nonautologous Frozen Plasma into Peripheral Vein, Percutaneous Approach (ICD-10-PCS; 2017-12-21)
DX: S72.351A Displaced comminuted fracture of shaft of right femur, initial encounter for closed fracture (principal); T79.6XXA Traumatic ischemia of muscle, initial encounter; I26.99 Other pulmonary embolism without acute cor pulmonale; I46.9 Cardiac arrest, cause unspecified; J96.00 Acute respiratory failure, unspecified whether with hypoxia or hypercapnia; G93.41 Metabolic encephalopathy; D62 Acute posthemorrhagic anemia; I96 Gangrene, not elsewhere classified; M97.01XA Periprosthetic fracture around internal prosthetic right hip joint, initial encounter; E87.2 Acidosis; D68.9 Coagulation defect, unspecified; E87.6 Hypokalemia; W01.0XXA Fall on same level from slipping, tripping and stumbling without subsequent striking against object, initial encounter; I95.9 Hypotension, unspecified; D75.82 Heparin induced thrombocytopenia (HIT); Z72.89 Other problems related to lifestyle; Z82.49 Family history of ischemic heart disease and other diseases of the circulatory system; Y93.89 Activity, other specified; Y92.59 Other trade areas as the place of occurrence of the external cause; Y99.8 Other external cause status
CPT/HCPCS: 31500; 36415; 36600; 71045; 71275; 72170; 80048; 80053; 80061; 82140; 82270; 82550; 82553; 82803; 82962; 83735; 84100; 84484; 85007; 85014; 85018; 85025; 85027; 85049; 85520; 85610; 85730; 86022; 86850; 86900; 86901; 86920; 92950; 93005; 93010; 93306; 93970; 94002; 94760; 96374; 96375; C1713; C1769; J0171; J0282; J0690; J1100; J1170; J1265; J1644; J1815; J1885; J2250; J2270; J2370; J2405; J2704; J3010; J3430; J3475; J7030; J7040; J7050; J7060; J7070; J7120; P9016; P9017; Q9967